=== PATIENT | female | born 1940 | race African-American/Black ===

== ENCOUNTER 2021-11-11 14:05 | Inpatient (IN) | payer MEDICARE ==
[~2021-11-11] VITALS: Ht 167.6 cm; Wt 65.8 kg
[2021-11-11 14:05] VITALS: BP_SYST 114
--- NOTE | 2021-11-11 14:05 | NUR ---
BROUGHT IN TO BED #4 AND TRIAGED. REPORT GIVEN TO MIGUEL
--- NOTE | 2021-11-11 14:19 | NUR ---
DR FRANK AT CALLED TO BEDSIDE FOR EVALUATION
--- NOTE | 2021-11-11 14:37 | NUR ---
COVID Swab sent to lab for testing at 14:38.
--- NOTE | 2021-11-11 15:01 | NUR ---
81YO F BIBA FROM HOME WITH C/O ALTERED MENTAL STATUS X 2 HOURS. PT WITH RIGHT-SIDED DEFICIT S/P STROKE IN 2013. PT USUALLY RESPONDS TO QUESTIONS AND WAKES UP TO EAT, DRINK AND TAKE MEDICATIONS. BUT ACCORDING TO FAMILY, PT WOULD OPEN EYES BUT NOT RESPOND THIS MORNING. PT BED-BOUND AT BASELINE. ERMD MADE AWARE OF PT STATUS. PMH: BRAIN SURGERY (2005), STROKE (2013), ALZHEIMERS/DEMENTIA
[2021-11-11] MEDS ORDERED: VANCOMYCIN HCL 1000 MG/VIAL IV ONE (15:55)
[2021-11-11] MEDS ORDERED: PIPERACILLIN/TAZOBACTAM 3.375 GM/VIAL (ZOSYN) IV ONE (15:55)
[2021-11-11] MEDS ORDERED: PIPERACILLIN/TAZO 3.375 GM in NS 50 ML IV ONE (16:00)
[2021-11-11] MEDS ORDERED: NACL 0.9% 1,000 ML IV ONE (16:00)
[2021-11-11] MEDS ORDERED: VANCOMYCIN HCL 1,000 MG in NS 250 ML IV ONE (16:00)
[2021-11-11 16:03] LABS: ANION GAP 7 (5-15); CHLORIDE 105 mmol/L (98-107); CREATININE 0.85 mg/dL (0.55-1.30); GLUCOSE 127 mg/dL (70-99); INR 4.7 (0.8-1.2); POTASSIUM 3.2 mmol/L (3.5-5.1); PROTHROMBIN TIME 43.7 SECS (9.5-12.5); SODIUM SERUM 139 mmol/L (136-145); UREA NITROGEN, BLOOD 19 mg/dL (8-21)
[2021-11-11 16:07] LABS: ALANINE AMINOTRANSFERASE 44 U/L (12-78); ALBUMIN 3.2 g/dL (3.4-4.8); ALCOHOL, BLOOD 3 mg/dL (<10); ASPARTATE AMINOTRANSFERASE 41 U/L (10-37); LIPASE 118 U/L (73-393); PHOSPHORUS 1.9 mg/dL (2.7-4.5); TOTAL BILIRUBIN 1.8 mg/dL (0.0-1.0)
[2021-11-11 16:22] LABS: CALCIUM 13.1 mg/dL (8.4-11.0)
[2021-11-11] MEDS ORDERED: AMLO2.5T2 PO (16:23)
[2021-11-11] MEDS ORDERED: GABA-529 PO (16:23)
[2021-11-11] MEDS ORDERED: LOSA100T3 PO (16:23)
[2021-11-11] MEDS ORDERED: VITD400 PO (16:23)
[2021-11-11] MEDS ORDERED: MORPHINE 2 MG/ML INJ. SYRINGE IVP ONE (16:30)
[2021-11-11 16:37] LABS: BASOPHILS % (AUTO) 0.5 % (0.0-2.0); EOSINOPHILS % (AUTO) 0.1 % (0.0-4.0); HEMATOCRIT 36.4 % (36-48); HEMOGLOBIN 12.4 g/dL (12.0-16.0); LYMPHOCYTES # (AUTO) 1.3 K/uL (1.0-5.5); LYMPHOCYTES % (AUTO) 14.7 % (20.5-51.5); MEAN CORPUSCULAR HEMOGLOBIN 34 pg (27-31); MEAN CORPUSCULAR HGB CONC 34 % (32-36); MEAN CORPUSCULAR VOLUME 100 fL (79.0-98.0); MONOCYTES # (AUTO) 0.8 K/uL (0.0-1.0); MONOCYTES % (AUTO) 9.2 % (1.7-9.3); NEUTROPHILS # (AUTO) 6.5 K/uL (1.8-7.7); NEUTROPHILS % (AUTO) 75.5 % (40.0-70.0); PLATELET COUNT (AUTO) 233 K/uL (130-430); RED BLOOD CELL COUNT(AUTO) 3.65 MIL/uL (4.2-6.2); RED CELL DISTRIBUTION WIDTH 13.3 % (9.0-15.0); WHITE BLOOD COUNT (AUTO) 8.6 K/uL (4.8-10.8)
--- NOTE | 2021-11-11 18:05 | NUR ---
Admit bed requested Patient will be admitted to care of . Admitted to TELEMETRY unit. Diagnosis ALTERED MENTAL STATUS Inpatient (Yes or No) YES Observation (Yes or No) NO Orientation concerns or request close to nursing station (Yes or No) NO Covid Status NEGATIVE On vent or bipap NO Isolation requirements NONE Needs a sitter NO From Home (Yes or if No enter name of facility) YES Requires Dialysis (Yes or No) NO Med Rec Completed (Yes of No) NO
--- NOTE | 2021-11-11 18:06 | NUR ---
MED LIST WITH DAUGHTER. DAUGHTER WAS IN WAITING ROOM BUT STEPPED OUT AT THIS TIME.
--- NOTE | 2021-11-11 18:35 | NUR ---
ADMITTED PATIENT BROUGHT TO FLOOR VIA [facility]. PATIENT IS ON 15L NON REBREATHER, OPENED EYES WHEN TRANSFERRING FROM [facility] TO BED. PATIENT'S BREATHING IS LABORED. PATIENT HAS SIGNED DNR IN CHART. IV FLUID IS INFUSING. NO OTHER NEEDS AT THIS TIME. ALL SAFETY PRECAUTIONS IN PLACE. CALL LIGHT IS WITH HER ATTEMPTED TO EDUCATE BUT UNABLE TO EDUCATED. NO OTHER NEEDS AT THIS TIME.
--- NOTE | 2021-11-11 18:41 | NUR ---
Patient will be admitted to care of dr molina. Admitted to telemetry unit. Will go to room 119b. Belongings list completed. Complete and up to date summary report printed. SBAR report to be given at bedside with opportunity for questions.
[2021-11-11 18:49] VITALS: BP_SYST 123
--- NOTE | 2021-11-11 21:15 | NUR ---
ADMISSION from ER patient non verbal , on non Re breather 02 MASK @ 15 LPM patient is DNR with document in medical RECORD , HOB kept elevated call ballard given to patient procedures explained comfort measures implemented .
[2021-11-11 23:00] VITALS: BP_SYST 114
[2021-11-12 00:18] VITALS: BP_SYST 125
--- NOTE | 2021-11-12 02:12 | NUR ---
Reposition & Turning patient on two hour schedule comfort measures implemented kept clean & dry as needed .
[2021-11-12 08:00] VITALS: BP_SYST 132
--- NOTE | 2021-11-12 08:00 | NUR ---
INITIAL NOTES PATIENT IS RESTING WITH EYES CLOSED. OPENED EYES WHEN REPOSITIONED HER. NONVERBAL. PATIENT IS ON 15 L NON REBREATHER. SPO2 100%. BREATHING IS NON LABORED. RESPIRATORY RATE 16. NO FACIAL GRIMACE OR DISTRESS NOTED. SAFETY PRECAUTIONS IN PLACE. CALL LIGHT WITHIN REACH.
--- NOTE | 2021-11-12 10:00 | NUR ---
Notes Has incontinent of urine, change and repositioned. patient able to open her eyes but she is non verbal. Oral care and javier care done.
--- NOTE | 2021-11-12 11:11 | NUR ---
CONSULTATION PAGED REASON FOR CONSULTATION:STROKE WAS CONSULT CALLED?Y PERSON WHO WAS NOTIFIED:TEXT MESSAGED KLEVER WAGGONER CONSULTING PHYSICIAN:KLEVER WAGGONER MEDICAL RECORD ADMINISTRATOR SPECIALTY:NEURO MEDICAL RECORD ADMINISTRATOR PHONE NUMBER:[phone] REQUESTING PHYSICIAN:JJ KIMBROUGH
[2021-11-12 11:28] VITALS: BP_SYST 133
--- NOTE | 2021-11-12 12:30 | NUR ---
Notes Patient is resting with eyes closed. No facial grimace note. No s/s of distress. Pt has been turned and repositioned. Safety Precautions in place and call light within reach.
--- NOTE | 2021-11-12 13:10 | NUR ---
NOTES CARDIOPULMONARY CALLED, EEG CANNOT BE DONE TODAY. SCHEDULED FOR TOMORROW 11/13 AT 0800.
[2021-11-12] MEDS: KCL 20 mEq in D5NS 1000 mL 1,000 ML IV SCH ×2 (14:14→23:49)
[2021-11-12 15:51] VITALS: BP_SYST 117
--- NOTE | 2021-11-12 16:30 | NUR ---
Notes Patient continues to be resting. Has been cleaned and repositioned. No s/s of distress or facial grimace noted. Family is at bedside. Safety precautions in place. Unable to remove extremities, bed alarm on.
--- NOTE | 2021-11-12 18:09 | NUR ---
INFORMED ARA OSBORN THAT THE PATIENT'S HEARTRATE IS 181
--- NOTE | 2021-11-12 18:22 | NUR ---
Closing Notes Patient is resting, eyes closed. Patient's heart rate went up t0 181, for a short period of time and went back down to 102. Pt is DNR. Family wants comfort measures. Will notify MD.
[2021-11-12 20:00] VITALS: BP_SYST 114
[2021-11-13] VITALS: BP_SYST 95
[2021-11-13 00:15] VITALS: BP_SYST 141
[2021-11-13 06:54] LABS: BASOPHILS % (AUTO) 0.2 % (0.0-2.0); HEMATOCRIT 37.9 % (36-48); LYMPHOCYTES % (AUTO) 5.5 % (20.5-51.5); MEAN CORPUSCULAR HEMOGLOBIN 34 pg (27-31); MEAN CORPUSCULAR HGB CONC 34 % (32-36); MEAN CORPUSCULAR VOLUME 100 fL (79.0-98.0); MONOCYTES # (AUTO) 0.9 K/uL (0.0-1.0); MONOCYTES % (AUTO) 5.2 % (1.7-9.3); NEUTROPHILS # (AUTO) 15.6 K/uL (1.8-7.7); NEUTROPHILS % (AUTO) 89.1 % (40.0-70.0); PLATELET COUNT (AUTO) 210 K/uL (130-430); RED BLOOD CELL COUNT(AUTO) 3.81 MIL/uL (4.2-6.2); RED CELL DISTRIBUTION WIDTH 12.9 % (9.0-15.0); WHITE BLOOD COUNT (AUTO) 17.5 K/uL (4.8-10.8)
[2021-11-13 07:27] LABS: ANION GAP 11 (5-15); CALCIUM 12.3 mg/dL (8.4-11.0); CHLORIDE 111 mmol/L (98-107); CREATININE 0.63 mg/dL (0.55-1.30); GLUCOSE 140 mg/dL (70-99); POTASSIUM 3.3 mmol/L (3.5-5.1); SODIUM SERUM 148 mmol/L (136-145); UREA NITROGEN, BLOOD 11 mg/dL (8-21)
[2021-11-13 08:00] VITALS: BP_SYST 128
--- NOTE | 2021-11-13 08:00 | NUR ---
Initial Notes Patient is resting, eyes closed. Non verbal, unable to move extremities. Pt on nonrebreather mask @ 15 L. SPo2 at 100%. VS obtained. no s/s of distress or facial grimace. Pt has been repositioned. Bed alarm on, safety precautions in place. Addendum: 11/13/21 at 1041 by Aaliyah Pablo LVN Initial Notes Patient is resting, eyes closed. Lethargic, Non verbal, unable to move extremities. Pt on nonrebreather mask @ 15 L. SPo2 at 100%. VS obtained. no s/s of distress or facial grimace. Pt has been repositioned. Bed alarm on, safety precautions in place.
--- NOTE | 2021-11-13 08:30 | NUR ---
MD ROUNDS Seen by Dr. Jerome, made aware of patient's no IV access at this time and patient is hardstick. No new orders at this time.
[2021-11-13] MEDS: ATORVASTATIN 20 MG TABLET PO SCH (09:00)
[2021-11-13] MEDS: ASPIRIN 81 MG TABLET(ECOTRIN) PO SCH (09:00)
--- NOTE | 2021-11-13 10:00 | NUR ---
IV - Able to start IV access on the right Forearm no. 24.
[2021-11-13] MEDS: PIPERACILLIN/TAZO 3.375/DEX-IS 50 ML IV SCH ×2 (11:33→18:05)
[2021-11-13] MEDS: KCL 40mEq in D5/0.45NS 1000 mL 1,000 ML IV SCH ×2 (11:33→19:45)
--- NOTE | 2021-11-13 12:00 | NUR ---
Notes Patient is lethargic, non verbal. No change from earlier assessment. No s/s of distress or pain noted. No facial grimace. pt has been repositioned. Safety precautions in place and bed alarm on.
[2021-11-13 12:08] VITALS: BP_SYST 129
[2021-11-13 16:18] VITALS: BP_SYST 124
--- NOTE | 2021-11-13 18:20 | NUR ---
CLOSING NOTES PATIENT IS RESTING, EYES CLOSED. NO S/S OF DISTRESS OR PAIN NOTED. PT SPO2 AT 100% WITH NRB @ 15L. FAMILY AT BEDSIDE. WAITING FOR BED AT [facility]. SAFETY PRECAUTIONS IN PLACE. BED ALARM ON. Addendum: 11/13/21 at 1831 by Aaliyah Pablo LVN CLOSING NOTES PATIENT IS RESTING, EYES CLOSED. NO S/S OF DISTRESS OR PAIN NOTED. PT SPO2 AT 100% WITH NRB @ 15L. FAMILY AT BEDSIDE. WAITING FOR BED AT [facility]. SAFETY PRECAUTIONS IN PLACE. BED ALARM ON.
[2021-11-13 21:36] VITALS: BP_SYST 125
[2021-11-14 00:52] VITALS: BP_SYST 113
[2021-11-14] MEDS: PIPERACILLIN/TAZO 3.375/DEX-IS 50 ML IV SCH ×5 (01:13→18:15)
[2021-11-14] MEDS: KCL 40mEq in D5/0.45NS 1000 mL 1,000 ML IV SCH ×2 (04:20→15:45)
--- NOTE | 2021-11-14 08:00 | NUR ---
OPENING NOTE Patient is resting, eyes closed but will open eye when name is called. Lethargic, Non verbal, unable to move extremities. Pt on nonrebreather mask @ 12 L. SPo2 at 100%. VS obtained all WNL with no s/s of distress or facial grimace. Pt has IV access in L arm with IVF infusing. Bed alarm on and all safety precautions in place.
--- NOTE | 2021-11-14 08:00 | NUR ---
Critical Lab Harriet from lab tho and pt's Potassium level was 2.7. MD Jerome notified and order to give K rider 40 Meq. Lab called and notified
[2021-11-14 08:27] LABS: CALCIUM 12.2 mg/dL (8.4-11.0); CREATININE 0.76 mg/dL (0.55-1.30); GLUCOSE 144 mg/dL (70-99); UREA NITROGEN, BLOOD 9 mg/dL (8-21)
[2021-11-14 08:34] LABS: ANION GAP 11 (5-15); CHLORIDE 108 mmol/L (98-107); SODIUM SERUM 145 mmol/L (136-145)
[2021-11-14 08:39] LABS: POTASSIUM 2.7 mmol/L (3.5-5.1)
[2021-11-14] MEDS: ATORVASTATIN 20 MG TABLET PO SCH (09:00)
[2021-11-14] MEDS: ASPIRIN 81 MG TABLET(ECOTRIN) PO SCH (09:00)
[2021-11-14 09:18] LABS: BASOPHILS % (AUTO) 0.3 % (0.0-2.0); EOSINOPHILS % (AUTO) 0.2 % (0.0-4.0); HEMATOCRIT 37.8 % (36-48); HEMOGLOBIN 12.8 g/dL (12.0-16.0); LYMPHOCYTES # (AUTO) 1.3 K/uL (1.0-5.5); LYMPHOCYTES % (AUTO) 12.6 % (20.5-51.5); MEAN CORPUSCULAR HEMOGLOBIN 34 pg (27-31); MEAN CORPUSCULAR HGB CONC 34 % (32-36); MEAN CORPUSCULAR VOLUME 99 fL (79.0-98.0); MONOCYTES # (AUTO) 1.1 K/uL (0.0-1.0); MONOCYTES % (AUTO) 10.6 % (1.7-9.3); NEUTROPHILS # (AUTO) 7.8 K/uL (1.8-7.7); NEUTROPHILS % (AUTO) 76.3 % (40.0-70.0); PLATELET COUNT (AUTO) 265 K/uL (130-430); RED BLOOD CELL COUNT(AUTO) 3.82 MIL/uL (4.2-6.2); RED CELL DISTRIBUTION WIDTH 13.1 % (9.0-15.0); WHITE BLOOD COUNT (AUTO) 10.2 K/uL (4.8-10.8)
[2021-11-14 10:45] VITALS: BP_SYST 124
--- NOTE | 2021-11-14 10:45 | NUR ---
CM: CALLED SPOKE TO [facility]EELE, , wILL BE WORKING ON FINDING A BED FOR THE PT, UNCLEAR ABOUT LOCATION AT THIS TIME, [facility] vs [facility], FAMILY PREFERS [facility], WILL HAVE DAUGHTER CHETAN CALL [employer] TO VERIFY ADDRESS.
[2021-11-14] MEDS ORDERED: MUPIROCIN 2% TOPICAL OINTMENT 22 GM NS PRN (11:15)
[2021-11-14] MEDS ORDERED: POTASSIUM CHLORIDE 20 MEQ TAB.PRT.SR PO PRN (11:15)
[2021-11-14] MEDS ORDERED: ACETAMINOPHEN 325 MG TABLET PO PRN ×2 (11:15→11:30)
[2021-11-14] MEDS ORDERED: MORPHINE 2 MG/ML INJ. SYRINGE IVP PRN ×2 (11:15)
[2021-11-14] MEDS ORDERED: ONDANSETRON HCL 4 MG/2 ML VIAL IVP PRN (11:15)
[2021-11-14] MEDS ORDERED: DOCUSATE SODIUM 100 MG CAPSULE PO PRN (11:15)
[2021-11-14] MEDS ORDERED: MAGNESIUM SULFATE 50 ML IV PRN (11:15)
--- NOTE | 2021-11-14 11:30 | NUR ---
TRANSFER NOTE [facility] TRANSFER STAFF CEDRIC CALLED FROM [phone]. SHE REPORTED PT WAS TO TRANSFER TO [facility]. THIS NURSE CALLED RICH CALLED AT [phone] TO INFORM OF THE TRANSFER. MR LU WAS UPSET AND REPORTS PT WAS TO TRANSFER TO [facility]. THIS NURSE GAVE MR GODWIN THE NUMBER TO SPEAK WITH MS CEDRIC AT [facility]
[2021-11-14 12:18] LABS: INR > 9.0 (0.8-1.2)
[2021-11-14 12:19] LABS: PROTHROMBIN TIME > 90.0 SECS (9.5-12.5)
[2021-11-14] MEDS ORDERED: POTASSIUM CHLORIDE 40 MEQ in NS 250 ML IV ONE (12:30)
[2021-11-14 12:42] VITALS: BP_SYST 120
[2021-11-14 16:11] VITALS: BP_SYST 145
--- NOTE | 2021-11-14 19:46 | NUR ---
CRITICAL LAB PT GREATER THAN 90 SEC INR GREATER THAN 9 PAGE [address]ACED SUE FOLEY, AWAITING ORDERS
--- NOTE | 2021-11-14 19:47 | NUR ---
Left a message to Dr. Lewis.
[2021-11-14 20:01] VITALS: BP_SYST 131
--- NOTE | 2021-11-14 20:07 | NUR ---
MD RETURN CALL DR GARDNER NOTIFIED OF INCREASE PT AND INR, AT THIS TIME SHE GAVE NO NEW ORDERS
[2021-11-15 00:41] VITALS: BP_SYST 130
[2021-11-15 02:52] VITALS: BP_SYST 130
--- NOTE | 2021-11-15 03:56 | NUR ---
PT HEART RATE GOES UP TO 160-170'S I CALLED DR. HEREDIA WELDING PROCESS SPECIALIST TO NOTIFY HER AND SHE STATED TO PLACE AN ORDER FOR METOPROLOL 5 MG IVP ONCE NOW. ORDER HAS BEEN PLACED AND PENDING APPROVAL FROM PHARMACY . WILL CONTINUE TO MONITOR PT.
[2021-11-15] MEDS ORDERED: METOPROLOL TARTRATE 5 MG/5 ML AMPUL IVP ONE (04:00)
[2021-11-15] MEDS: KCL 40mEq in D5/0.45NS 1000 mL 1,000 ML IV SCH ×2 (04:05→14:03)
[2021-11-15] MEDS: PIPERACILLIN/TAZO 3.375/DEX-IS 50 ML IV SCH ×3 (05:14→16:50)
--- NOTE | 2021-11-15 07:45 | NUR ---
Opening Notes/AFIB RVR Patient is awake, alert and oriented x0. Flat affect, withdrawn. Arousable to painful stimuli. Patient is currently in AFIB RVR, HR 140-170's. Nurse contacted Dr. Jerome and obtained new orders for Cardizem 10 mg IVP. Administered Cardizem 10 mg IVP, tolerated well. HR controlled to 105-110. New cardiac consult with Dr. Delgado. Mild SOB at rest. Pt remains on NRB @ 15 LPM, use of accessory muscles. NO signs of pain on FLACC scale. IV site on right FA 20 gauge intact. KCl 40 mEq + D5 1/2 NS @ 100 ml/hr, infusing well. Pt was repositioned in bed with pillows. All needs met at this time. Safety and fall precautions in place. Bed in lowest position, alarm on, locked. Will continue to monitor.
[2021-11-15 07:50] LABS: BASOPHILS % (AUTO) 0.4 % (0.0-2.0); EOSINOPHILS # (AUTO) 0.1 K/uL (0.0-0.4); EOSINOPHILS % (AUTO) 0.8 % (0.0-4.0); HEMOGLOBIN 10.9 g/dL (12.0-16.0); LYMPHOCYTES # (AUTO) 1.6 K/uL (1.0-5.5); LYMPHOCYTES % (AUTO) 17.5 % (20.5-51.5); MEAN CORPUSCULAR HEMOGLOBIN 34 pg (27-31); MEAN CORPUSCULAR HGB CONC 34 % (32-36); MEAN CORPUSCULAR VOLUME 100 fL (79.0-98.0); MONOCYTES # (AUTO) 1.1 K/uL (0.0-1.0); MONOCYTES % (AUTO) 11.4 % (1.7-9.3); NEUTROPHILS # (AUTO) 6.4 K/uL (1.8-7.7); NEUTROPHILS % (AUTO) 69.9 % (40.0-70.0); PLATELET COUNT (AUTO) 249 K/uL (130-430); RED BLOOD CELL COUNT(AUTO) 3.21 MIL/uL (4.2-6.2); RED CELL DISTRIBUTION WIDTH 13.2 % (9.0-15.0); WHITE BLOOD COUNT (AUTO) 9.2 K/uL (4.8-10.8)
[2021-11-15] MEDS: dilTIAZem HCL IVP 5 MG/ML VIAL IVP PRN ×2 (07:51→14:03)
[2021-11-15 08:00] VITALS: BP_SYST 160
[2021-11-15 08:45] LABS: ANION GAP 7 (5-15); CALCIUM 11.4 mg/dL (8.4-11.0); CHLORIDE 110 mmol/L (98-107); CREATININE 0.86 mg/dL (0.55-1.30); GLUCOSE 122 mg/dL (70-99); POTASSIUM 3.8 mmol/L (3.5-5.1); SODIUM SERUM 144 mmol/L (136-145); UREA NITROGEN, BLOOD 8 mg/dL (8-21)
[2021-11-15] MEDS: ASPIRIN 81 MG TABLET(ECOTRIN) PO SCH (09:00)
[2021-11-15] MEDS: ATORVASTATIN 20 MG TABLET PO SCH (09:00)
--- NOTE | 2021-11-15 09:20 | NUR ---
AFIB RVR-HR [address] Delgado of patients AFIB RVR, HR 150-170's. MD Delgado aware. New orders obtained for Lopressor.
[2021-11-15] MEDS: METOPROLOL TARTRATE 5 MG/5 ML AMPUL IVP PRN (09:53)
--- NOTE | 2021-11-15 12:00 | NUR ---
Notes/Continued AFIB RVR, Dr. Delgado aware Patient is sleeping while in bed. Alert and oriented x0. Cardiac monitoring, AFIB RVR. HR is 150-170. Notified Dr. Delgado, no new orders at this time. No acute distress noted. Pt shows no signs of pain. No stroke like symptoms at this time. Difficult to arouse. Repositioned patient in bed with pillows. Will continue to monitor.
[2021-11-15 12:29] VITALS: BP_SYST 152
--- NOTE | 2021-11-15 14:00 | NUR ---
Cardizem 10 mg IVP Pt is laying in bed, resting at this time. Mild SOB at rest. Pt remains on NRB @ 15 LPM, tolerating well. Oxy noted at 100%. No signs of pain. Cardiac monitoring, AFIB RVR, HR 150-180. Administered Cardizem 10 mg IVP, tolerated well. Upon reassessment, patients HR was noted at 60-90 BPM within the hour. Will continue to monitor.
[2021-11-15 16:06] VITALS: BP_SYST 136
--- NOTE | 2021-11-15 18:26 | NUR ---
Closing Notes/Continued AFIB RVR, HR 140-150 Patient is asleep at this time. Alert and oriented x0, restful. Moderate SOB at rest. Pt remains on Venturi Mask @ 8 LPM, tolerating well. Oxy sat noted at 100%. No signs of pain at this time. IV site on right FA 20 gauge intact, KCl 40 mEq + D5 1/2 NS @ 100 ml/hr, infusing well. Pending PICC line insertion and TPN start, will endorse to next shift. Pt remains on bedrest at this time. Repositioned with pillows. All needs met at this time. Safety and fall precautions in place. Bed in lowest position, alarm on, locked. Will continue to monitor.
[2021-11-15 20:11] VITALS: BP_SYST 125
--- NOTE | 2021-11-15 21:26 | NUR ---
RR REGULAR AND UNLABORED, OBTUNDED, DOES NOT OPEN EYES UPON TACTILE STIMULATION. ITEMS NEEDED TO START THE PICC LINE AT BEDSIDE, AWAITING PICC LINE NURSE Addendum: 11/15/21 at 215 by [facility] control inspector PICC LINE NURSE AT BEDSIDE Addendum: 11/15/21 at 2251 by [facility] Marielle VILLANUEVA 2229: PICC LINE INSERTED, DIYA FROM XRAY CALLED TO VERIFY PLACEMENT. Addendum: 11/15/21 at 2256 by [place] control inspector [id number]: [facility] LINE IN PLACE.
[2021-11-16] VITALS: BP_SYST 142
[2021-11-16] MEDS: PIPERACILLIN/TAZO 3.375/DEX-IS 50 ML IV SCH ×4 (00:17→18:58)
[2021-11-16] MEDS: KCL 40mEq in D5/0.45NS 1000 mL 1,000 ML IV SCH ×3 (05:27→16:16)
[2021-11-16 08:35] LABS: BASOPHILS # (AUTO) 0.1 K/uL (0.0-0.2); BASOPHILS % (AUTO) 0.7 % (0.0-2.0); EOSINOPHILS # (AUTO) 0.1 K/uL (0.0-0.4); EOSINOPHILS % (AUTO) 1.3 % (0.0-4.0); HEMATOCRIT 32.2 % (36-48); HEMOGLOBIN 11.1 g/dL (12.0-16.0); LYMPHOCYTES # (AUTO) 1.8 K/uL (1.0-5.5); LYMPHOCYTES % (AUTO) 19.4 % (20.5-51.5); MEAN CORPUSCULAR HEMOGLOBIN 34 pg (27-31); MEAN CORPUSCULAR HGB CONC 34 % (32-36); MEAN CORPUSCULAR VOLUME 99 fL (79.0-98.0); MONOCYTES # (AUTO) 0.8 K/uL (0.0-1.0); MONOCYTES % (AUTO) 8.5 % (1.7-9.3); NEUTROPHILS # (AUTO) 6.5 K/uL (1.8-7.7); NEUTROPHILS % (AUTO) 70.1 % (40.0-70.0); PLATELET COUNT (AUTO) 221 K/uL (130-430); RED BLOOD CELL COUNT(AUTO) 3.25 MIL/uL (4.2-6.2); RED CELL DISTRIBUTION WIDTH 13.2 % (9.0-15.0); WHITE BLOOD COUNT (AUTO) 9.2 K/uL (4.8-10.8)
[2021-11-16 08:59] LABS: ANION GAP 9 (5-15); CALCIUM 10.7 mg/dL (8.4-11.0); CHLORIDE 106 mmol/L (98-107); CREATININE 0.83 mg/dL (0.55-1.30); GLUCOSE 117 mg/dL (70-99); POTASSIUM 3.6 mmol/L (3.5-5.1); SODIUM SERUM 140 mmol/L (136-145); UREA NITROGEN, BLOOD 9 mg/dL (8-21)
[2021-11-16] MEDS: ATORVASTATIN 20 MG TABLET PO SCH (09:00)
[2021-11-16] MEDS: ASPIRIN 81 MG TABLET(ECOTRIN) PO SCH (09:00)
--- NOTE | 2021-11-16 12:14 | NUR ---
PHARMACY MANAGER received SS consult to arrange for Hospice care. PHARMACY MANAGER attempted to meet with Pt. however at this time she was not responsive and unable to participate in a meaningful manner. Per chart review family has declined hospice when addressed by [facility] 2 different MD recommending hospice care. Pt. is DNR and prognosis is poor. PHARMACY MANAGER attempted to speak with , unable to make contact. PHARMACY MANAGER faxed referral to [facility] so that they may consult with family and introduce services for consideration of hospice care. Voicemail was left for [facility] hospice care provider Pina regarding family declining recommendation and might need some intro to services and sensitively address theri concerns.
[2021-11-16 12:22] VITALS: BP_SYST 138
--- NOTE | 2021-11-16 15:35 | NUR ---
NURSE RECEIVED A PHONE CALL FROM HOSPICE NURSE, LIYA. NURSE IS CALLING FROM [facility]. NURSE REACHED OUT OT HE FAMILY TO START PROCESSING THE PT. FAMILY REFUSED HOME HOSPICE.STATED THAT THEY WANTED THE PT TO RECEIVE INPATIENT HOSPICE AT THE HOSPITAL.
[2021-11-16 16:26] VITALS: BP_SYST 140
[2021-11-16 20:00] VITALS: BP_SYST 118; BP_SYST 136
[2021-11-17] MEDS: PIPERACILLIN/TAZO 3.375/DEX-IS 50 ML IV SCH ×4 (00:18→18:28)
[2021-11-17 00:48] VITALS: BP_SYST 139
[2021-11-17] MEDS: KCL 40mEq in D5/0.45NS 1000 mL 1,000 ML IV SCH ×3 (04:00→13:22)
[2021-11-17 07:00] LABS: BASOPHILS % (AUTO) 0.4 % (0.0-2.0); EOSINOPHILS # (AUTO) 0.1 K/uL (0.0-0.4); EOSINOPHILS % (AUTO) 1.9 % (0.0-4.0); HEMATOCRIT 34.8 % (36-48); HEMOGLOBIN 11.7 g/dL (12.0-16.0); LYMPHOCYTES # (AUTO) 1.9 K/uL (1.0-5.5); LYMPHOCYTES % (AUTO) 23.5 % (20.5-51.5); MEAN CORPUSCULAR HEMOGLOBIN 33 pg (27-31); MEAN CORPUSCULAR HGB CONC 34 % (32-36); MEAN CORPUSCULAR VOLUME 99 fL (79.0-98.0); MONOCYTES # (AUTO) 0.7 K/uL (0.0-1.0); MONOCYTES % (AUTO) 8.8 % (1.7-9.3); NEUTROPHILS # (AUTO) 5.2 K/uL (1.8-7.7); NEUTROPHILS % (AUTO) 65.4 % (40.0-70.0); PLATELET COUNT (AUTO) 241 K/uL (130-430); RED BLOOD CELL COUNT(AUTO) 3.51 MIL/uL (4.2-6.2); WHITE BLOOD COUNT (AUTO) 7.9 K/uL (4.8-10.8)
[2021-11-17 07:26] LABS: ANION GAP 7 (5-15); CALCIUM 10.3 mg/dL (8.4-11.0); CHLORIDE 106 mmol/L (98-107); CREATININE 0.85 mg/dL (0.55-1.30); GLUCOSE 128 mg/dL (70-99); POTASSIUM 3.9 mmol/L (3.5-5.1); SODIUM SERUM 137 mmol/L (136-145); UREA NITROGEN, BLOOD 6 mg/dL (8-21)
[2021-11-17 08:00] VITALS: BP_SYST 145
[2021-11-17] MEDS: ASPIRIN 81 MG TABLET(ECOTRIN) PO SCH (08:47)
[2021-11-17] MEDS: ATORVASTATIN 20 MG TABLET PO SCH (08:48)
[2021-11-17 12:52] VITALS: BP_SYST 148
[2021-11-17] MEDS: dilTIAZem HCL IVP 5 MG/ML VIAL IVP PRN (14:53)
[2021-11-17 16:15] VITALS: BP_SYST 147
--- NOTE | 2021-11-17 22:00 | NUR ---
RECEIVED IN NO ACUTE RESP. DISTRESS. ON RA AND O2 SATS 100%. VS WNL. REPOSITIONED IN BED FOR COMFORT. NO S/S OF PAIN OR DISCOMFORT AT THIS TIME. SAFETY MEASURES IN PLACE. WILL CONTINUE WITH PLAN OF CARE.
[2021-11-17 22:16] VITALS: BP_SYST 147
[2021-11-18] VITALS (7 sets, daily range): BP systolic 110–152
[2021-11-18] MEDS: PIPERACILLIN/TAZO 3.375/DEX-IS 50 ML IV SCH ×4 (00:10→18:22)
[2021-11-18] MEDS: KCL 40mEq in D5/0.45NS 1000 mL 1,000 ML IV SCH ×2 (00:10→15:07)
--- NOTE | 2021-11-18 03:25 | NUR ---
BED BATH GIVEN AND PT TOLERATED WELL. IN NO ACUTE DISTRESS. REPOSITIONED FOR COMFORT. HOB ELEVATED AND SIDE RAILS UP.
--- NOTE | 2021-11-18 06:26 | NUR ---
PT REMAINS IN NO ACUTE DISTRESS, ON RA SATS 98%. NO CHANGES IN VS. NO S/S OF PAIN OR DISCOMFORT NOTED. REPOSITIONED IN BED FOR COMFORT. HOB ELEVATED AND SIDE RAILS UP. IVF INFUSING WELL . WILL BE ENDORSED TO INCOMING SHIFT.
[2021-11-18 07:38] LABS: ALANINE AMINOTRANSFERASE 43 U/L (12-78); ALBUMIN 2.1 g/dL (3.4-4.8); ANION GAP 7 (5-15); ASPARTATE AMINOTRANSFERASE 41 U/L (10-37); CALCIUM 10.4 mg/dL (8.4-11.0); CHLORIDE 106 mmol/L (98-107); CREATININE 0.87 mg/dL (0.55-1.30); GLUCOSE 110 mg/dL (70-99); POTASSIUM 3.6 mmol/L (3.5-5.1); SODIUM SERUM 138 mmol/L (136-145); TOTAL BILIRUBIN 1.5 mg/dL (0.0-1.0); UREA NITROGEN, BLOOD 5 mg/dL (8-21)
[2021-11-18 07:57] LABS: INR 8.5 (0.8-1.2); PROTHROMBIN TIME 75.7 SECS (9.5-12.5)
[2021-11-18] MEDS: ATORVASTATIN 20 MG TABLET PO SCH (09:00)
[2021-11-18] MEDS: ASPIRIN 81 MG TABLET(ECOTRIN) PO SCH (09:00)
--- NOTE | 2021-11-18 10:05 | NUR ---
Tube Machine Operator Helper ANA Wells spoke with Pina from [facility]. She shared they connected with family on 11/16/2021 to discuss services, and shared patient's daughter Sona had additional questions. ANA Wells contacted patient's daughter Sona . She stated both her and patient's are not wanting to move forward with hospice care and would like patient to be transferred to [facility]. ANA has provided update of family's wishes to Patron Attendant Charo ANA will continue to be available as needed
--- NOTE | 2021-11-18 12:27 | NUR ---
Request for transfer to [facility] sent to [facility] at [facility]- at [facility] is [phone].
[2021-11-18] MEDS: dilTIAZem HCL IVP 5 MG/ML VIAL IVP PRN (16:07)
--- NOTE | 2021-11-18 16:10 | NUR ---
HR 142 HR 142. CARDIZEM 10 MG IVP GIVEN ORDER AFTER CARDIZEM HR 102-102. PT RESTING COMFORTABLY. NO S/S OF PAIN OR DISTRESS NOTED. WILL CONTINUE TO MONITOR
--- NOTE | 2021-11-18 16:37 | NUR ---
Transfer packet taken to RN with radiology disc-Barker to call if bed is available for patient.
--- NOTE | 2021-11-18 19:33 | NUR ---
closing notes .pt remains stable. notin acute distress. ivf infusing well. needs attended. repositioned with pillow. report given to night nurse
--- NOTE | 2021-11-18 23:53 | NUR ---
1930 Pt. in bed, non responsive, eyes open. NO acute distress noted, will monitor.
[2021-11-19] MEDS: PIPERACILLIN/TAZO 3.375/DEX-IS 50 ML IV SCH ×4 (00:01→17:04)
[2021-11-19 00:45] VITALS: BP_SYST 158
--- NOTE | 2021-11-19 02:37 | NUR ---
21 Pt. sleeping, vss 0030 Pt. with no distress, hob at35 degrees, turned and kept dry and clean
[2021-11-19] MEDS: KCL 40mEq in D5/0.45NS 1000 mL 1,000 ML IV SCH ×2 (02:41→13:17)
[2021-11-19] MEDS: METOPROLOL TARTRATE 5 MG/5 ML AMPUL IVP PRN (04:32)
--- NOTE | 2021-11-19 06:32 | NUR ---
0600 Pt. needs met this shift, vss, no s/s of pain. Turned and kept clean and dry during shift, resting quietly,
[2021-11-19] MEDS: ATORVASTATIN 20 MG TABLET PO SCH (08:39)
[2021-11-19] MEDS: ASPIRIN 81 MG TABLET(ECOTRIN) PO SCH (08:39)
[2021-11-19 09:08] VITALS: BP_SYST 145
--- NOTE | 2021-11-19 09:56 | NUR ---
Transfer order and MD notes faxed to [facility].
--- NOTE | 2021-11-19 11:06 | NUR ---
RECEIVED CALL FROM URIEL VARGAS ROLLED GOLD PLATER, PROVIDED INFORMATION REGARDING PT. HE STATED HE WILL CALL ME BACK FOR UPDATES. Addendum: 11/19/21 at 1758 by [facility] electronics warfare technician RECEIVED CALL FROM URIEL VARGAS , NO BED AVAILABLE TONIGHT FOR TRANSFER, WILL TRY AGAIN TOMORROW.
[2021-11-19 11:30] VITALS: BP_SYST 132
[2021-11-19 16:00] VITALS: BP_SYST 122
--- NOTE | 2021-11-19 18:35 | NUR ---
CLOSING NOTE: PT REMAINED STABLE THROUGHOUT THE DAY. NO DISTRESS NOTED. STILL AFIB UNCONTROLLED 110-120S ON THE MONITOR, BUT OTHERWISE STABLE VITAL SIGNS. ALL CARE NEEDS MET AT THIS TIME. REPOSITIONED EVERY 2 HOURS TO PREVENT SKIN BREAKDOWN. STILL PENDING [facility] TRANSFER. WILL ENDORSE CARE TO [facility].
[2021-11-20 00:40] VITALS: BP_SYST 134
[2021-11-20] MEDS ORDERED: NACL 0.9% 1,000 ML IV SCH (08:30)
--- NOTE | 2021-11-20 09:00 | NUR ---
DISCHARGE PLANNING Faxed updated pt info to [facility]. Addendum: 11/20/21 at 1132 by Aaliyah Gonzalez RN Called & spoke with [facility] Aircraft Life Support Fitter Loreta, ph [phone], states AJ is assigned CM today & is looking for bed at contracted [facility]. No bed found yet.
[2021-11-20] MEDS: ATORVASTATIN 20 MG TABLET PO SCH (09:36)
[2021-11-20] MEDS: ASPIRIN 81 MG TABLET(ECOTRIN) PO SCH (09:36)
[2021-11-20] MEDS: KCL 40mEq in D5/0.45NS 1000 mL 1,000 ML IV SCH ×2 (10:00)
[2021-11-20] MEDS: D5NS 1,000 ML IV SCH ×2 (10:29→22:50)
[2021-11-20 13:13] VITALS: BP_SYST 145
[2021-11-20 16:47] VITALS: BP_SYST 139
--- NOTE | 2021-11-20 19:30 | NUR ---
OPENING NOTES: Patient received from AM shift. Patient is note alert not able to make need known, no s/s of distress is noted. Chest rise is even and unlabored on RA. Normal heart sounds present on Tele monitoring. Active bowel sounds x4, no pain noted with palpation. PICC line noted on NATALI, C/D/I, infusing D5NS. Skin is noted to be intact. Is incontinent of B&B. Patient is currently stable and safety measures are in place at this time. Patient is currently stable and safety measures are in place. Will resume care and continue to monitor throughout the shift.
[2021-11-20 20:00] VITALS: BP_SYST 116; BP_SYST 145
[2021-11-20] MEDS: dilTIAZem HCL IVP 5 MG/ML VIAL IVP PRN (23:39)
[2021-11-21] VITALS: BP_SYST 135
[2021-11-21 06:12] LABS: BASOPHILS % (AUTO) 0.4 % (0.0-2.0); EOSINOPHILS # (AUTO) 0.1 K/uL (0.0-0.4); HEMATOCRIT 31.9 % (36-48); HEMOGLOBIN 10.9 g/dL (12.0-16.0); LYMPHOCYTES # (AUTO) 2.2 K/uL (1.0-5.5); LYMPHOCYTES % (AUTO) 38.5 % (20.5-51.5); MEAN CORPUSCULAR HEMOGLOBIN 34 pg (27-31); MEAN CORPUSCULAR HGB CONC 34 % (32-36); MEAN CORPUSCULAR VOLUME 99 fL (79.0-98.0); MONOCYTES # (AUTO) 0.7 K/uL (0.0-1.0); MONOCYTES % (AUTO) 12.2 % (1.7-9.3); NEUTROPHILS # (AUTO) 2.7 K/uL (1.8-7.7); NEUTROPHILS % (AUTO) 46.9 % (40.0-70.0); PLATELET COUNT (AUTO) 301 K/uL (130-430); RED BLOOD CELL COUNT(AUTO) 3.23 MIL/uL (4.2-6.2); WHITE BLOOD COUNT (AUTO) 5.8 K/uL (4.8-10.8)
[2021-11-21 06:36] LABS: ALANINE AMINOTRANSFERASE 23 U/L (12-78); ANION GAP 10 (5-15); ASPARTATE AMINOTRANSFERASE 22 U/L (10-37); CALCIUM 10.4 mg/dL (8.4-11.0); CHLORIDE 108 mmol/L (98-107); CREATININE 0.61 mg/dL (0.55-1.30); GLUCOSE 120 mg/dL (70-99); SODIUM SERUM 139 mmol/L (136-145); TOTAL BILIRUBIN 0.8 mg/dL (0.0-1.0); UREA NITROGEN, BLOOD 1 mg/dL (8-21)
--- NOTE | 2021-11-21 06:36 | NUR ---
CLOSING NOTES: Patient is in bed resting no s/s of distress is noted at this time. Chest rise is even and unlabored on RA. Patient is unable to verbalize needs, but all current shift needs have been met, safety measures are in place, and patient is stable. Will differ current care to AM shift for continuity of care.
[2021-11-21 08:00] VITALS: BP_SYST 124
--- NOTE | 2021-11-21 08:00 | NUR ---
RECEIVED REPORT FROM SUBHASH. PT NONVERBAL. RESPONSIVE TO LIGHT STIMULI. NO SOB OR RESPIRATORY DISTRESS. RR EVEN & UNLABORED. NO PAIN NOTED VIA CABRERA RECINOS PAIN SCALE. HOB ELEVATED. NPO. IVF INFUSING. NATALI PICC DRESSING C/D/I. BEDBOUND. NEEDS ALL MET AT THIS TIME. SAFETY MEASURES IN PLACE. WILL CONTINUE TO MONITOR CLOSELY.
[2021-11-21 08:07] LABS: POTASSIUM 2.7 mmol/L (3.5-5.1)
[2021-11-21 08:42] VITALS: BP_SYST 135
[2021-11-21] MEDS: ASPIRIN 81 MG TABLET(ECOTRIN) PO SCH (08:42)
[2021-11-21] MEDS: ATORVASTATIN 20 MG TABLET PO SCH (08:42)
--- NOTE | 2021-11-21 09:00 | NUR ---
CONTACTED DR. FOLEY REGARDING LAB VALUES. ORDER FOR KRIDER WITH LIDOCAINE. ORDERS INPUTTED.
[2021-11-21] MEDS ORDERED: POTASSIUM CHLORIDE 40 MEQ, LIDOCAINE JECT 2% PF 100 MG 25 MG in NS 250 ML IV ONE (09:15)
[2021-11-21 09:40] LABS: INR 4.1 (0.8-1.2); PROTHROMBIN TIME 37.9 SECS (9.5-12.5)
[2021-11-21] MEDS: D5NS 1,000 ML IV SCH (10:32)
--- NOTE | 2021-11-21 11:00 | NUR ---
REPORT GIVEN TO SADIA FROM [facility]. PENDING TRANSFER.
--- NOTE | 2021-11-21 11:00 | NUR ---
SPOKE WITH SADIA FROM [facility] AND REPORT GIVEN. TRANSFER PENDING.
[2021-11-21 11:30] VITALS: BP_SYST 144
[2021-11-21] MEDS: dilTIAZem HCL IVP 5 MG/ML VIAL IVP PRN ×2 (12:15→17:40)
--- NOTE | 2021-11-21 12:59 | NUR ---
Spoke to Luna at [facility] [phone]-Dlubsf given-Luna stated they do not have a Med/Surgical bed at [facility]. Patient is Medicare,therefore the patient has a choice of transferring hospitals, and the will only agree to [facility]. [facility] will notify us when a bed is available.
[2021-11-21 15:41] VITALS: BP_SYST 143
--- NOTE | 2021-11-21 19:29 | NUR ---
CLOSING: PT IN NO DISTRESS. NO SOB OR RESPIRATORY DISTRESS. ON RA. REPORT GIVEN TO NIGHTSHIFT RN FOR CONTINUITY OF CARE.
--- NOTE | 2021-11-21 19:30 | NUR ---
OPENING NOTES: Patient received from AM shift. Patient is in bed resting no s/s of distress is noted at this time. Chest rise is even and unlabored on RA. Patient hear rate is tachy with HR at above 110. Hypoactive BS x4, no pain noted with palpation. Patient is currently stable, safety measures are in place. Will resume care and continue to monitor.
[2021-11-21 20:00] VITALS: BP_SYST 159
[2021-11-22] VITALS: BP_SYST 140
[2021-11-22] MEDS: dilTIAZem HCL IVP 5 MG/ML VIAL IVP PRN ×2 (00:36→06:27)
[2021-11-22] MEDS: D5NS 1,000 ML IV SCH ×3 (00:36→21:53)
--- NOTE | 2021-11-22 00:45 | NUR ---
ROUNDS: Patient is in bed resting no s/s of distress is noted at this time. Patient HR was noted to be elevated >130bpm so PRN diltiazem was administered. Patient tolerated it well and HR decreased to <120bpm. safety protocols remain in place, will continue to monitor.
--- NOTE | 2021-11-22 06:28 | NUR ---
Patient HR is elevated >140bpm. Patient was assessed and no s/s of distress was noted at this time. PRN diltiazem was administered as ordered and HR has decreased to <110bpm will continue to monitor.
--- NOTE | 2021-11-22 06:32 | NUR ---
CLOSING NOTES: Patient is in bed sleeping no s/s of distress at this time. Chest rise is even and unlabored on RA. All current shift needs have been met and patient is current stable. Safety measures remain in place, patient has call light within reach. Will differ care to AM shift for continuity of care.
[2021-11-22 07:06] LABS: ANION GAP 10 (5-15); CALCIUM 10.7 mg/dL (8.4-11.0); CHLORIDE 110 mmol/L (98-107); CREATININE 0.51 mg/dL (0.55-1.30); GLUCOSE 129 mg/dL (70-99); POTASSIUM 3.3 mmol/L (3.5-5.1); SODIUM SERUM 140 mmol/L (136-145); UREA NITROGEN, BLOOD 1 mg/dL (8-21)
[2021-11-22] MEDS ORDERED: MAGNESIUM SULFATE 50 ML IV PRN (08:00)
[2021-11-22 08:05] VITALS: BP_SYST 142
[2021-11-22] MEDS: ASPIRIN 81 MG TABLET(ECOTRIN) PO SCH (09:00)
[2021-11-22] MEDS: ATORVASTATIN 20 MG TABLET PO SCH (09:00)
[2021-11-22] MEDS: POTASSIUM CHLORIDE 40 MEQ, LIDOCAINE JECT 2% PF 100 MG 50 MG in NS 250 ML IV PRN (09:48)
[2021-11-22 16:58] VITALS: BP_SYST 110
--- NOTE | 2021-11-22 19:00 | NUR ---
pt in bed resting. pt unable to make needs known. pt aox0. rr even and unlabored on ra. pt currently npo. pt has john picc. lucho heel protectors in place. bed rails x3. call light within reach. bed alarm on. will continue to monitor.
[2021-11-22 21:45] VITALS: BP_SYST 166
[2021-11-22] MEDS: METOPROLOL TARTRATE 5 MG/5 ML AMPUL IVP PRN (22:24)
--- NOTE | 2021-11-22 23:00 | NUR ---
pt bp and hr elevated. metoprolol was given per emar. will continue monitor.
[2021-11-23 01:23] VITALS: BP_SYST 143
[2021-11-23] MEDS: D5NS 1,000 ML IV SCH (05:53)
[2021-11-23 06:54] LABS: CALCIUM 10.1 mg/dL (8.4-11.0); CHLORIDE 111 mmol/L (98-107); CREATININE 0.71 mg/dL (0.55-1.30); GLUCOSE 120 mg/dL (70-99); SODIUM SERUM 141 mmol/L (136-145); UREA NITROGEN, BLOOD 2 mg/dL (8-21)
[2021-11-23 07:29] LABS: ANION GAP 12 (5-15)
--- NOTE | 2021-11-23 07:29 | NUR ---
bedside report given. pt in bed asleep. pt does not appear to be in distress. endorse care to day rn.
[2021-11-23 08:09] LABS: POTASSIUM 2.6 mmol/L (3.5-5.1)
[2021-11-23] MEDS: ASPIRIN 81 MG TABLET(ECOTRIN) PO SCH (09:00)
[2021-11-23] MEDS: ATORVASTATIN 20 MG TABLET PO SCH (09:00)
[2021-11-23] MEDS: POTASSIUM CHLORIDE 40 MEQ, LIDOCAINE JECT 2% PF 100 MG 50 MG in NS 250 ML IV PRN (09:07)
[2021-11-23 11:32] VITALS: BP_SYST 142
--- NOTE | 2021-11-23 13:01 | NUR ---
CM: F/u on bed assignment: per Luna/Mj,she will arrange for yany Scott to call me back.
[2021-11-23 16:36] VITALS: BP_SYST 137
[2021-11-23] MEDS ORDERED: DEXTROSE 50% JECT 50 ML DISP.SYRIN IVP PRN (17:45)
[2021-11-23 20:06] VITALS: BP_SYST 151
[2021-11-23] MEDS ORDERED: *TPN PER PHARMACY XX SCH (21:00)
[2021-11-23] MEDS: INSULIN REGULAR, HUMAN 100 UNITS/ML, 10 ML VIAL (humuLIN R) SUBCUT PRN (21:58)
[2021-11-23] MEDS: dilTIAZem HCL IVP 5 MG/ML VIAL IVP PRN (22:34)
[2021-11-24] MEDS: D5NS 1,000 ML IV SCH ×3 (01:02→21:00)
[2021-11-24 01:33] VITALS: BP_SYST 158
--- NOTE | 2021-11-24 02:13 | NUR ---
1930 Pt. in bed, hob at 40 degrees, no acute distress, eyes open, non verbal will monitor. 2200 Pt. HR high, given cardizem 10 mg ivp, vss suctioned prn with scant secretions noted pox wnl 0030 Pt. still has high HR, given morphine 1mg ivp for possible pain, bp wnl. 0200 Pt. suctioned prn, hob at 35 degrees, no acute distress, pox wnl
[2021-11-24] MEDS: INSULIN REGULAR, HUMAN 100 UNITS/ML, 10 ML VIAL (humuLIN R) SUBCUT PRN (05:23)
--- NOTE | 2021-11-24 06:19 | NUR ---
0600 Pt. needs met this shift, vss, turned q2, kept dry . Hob at 35 degrees, no distress noted.
[2021-11-24 07:44] LABS: BASOPHILS # (AUTO) 0.1 K/uL (0.0-0.2); BASOPHILS % (AUTO) 0.9 % (0.0-2.0); EOSINOPHILS % (AUTO) 0.2 % (0.0-4.0); HEMATOCRIT 30.6 % (36-48); HEMOGLOBIN 10.3 g/dL (12.0-16.0); LYMPHOCYTES # (AUTO) 1.4 K/uL (1.0-5.5); LYMPHOCYTES % (AUTO) 24.5 % (20.5-51.5); MEAN CORPUSCULAR HEMOGLOBIN 34 pg (27-31); MEAN CORPUSCULAR HGB CONC 34 % (32-36); MEAN CORPUSCULAR VOLUME 100 fL (79.0-98.0); MONOCYTES # (AUTO) 0.5 K/uL (0.0-1.0); MONOCYTES % (AUTO) 9.6 % (1.7-9.3); NEUTROPHILS # (AUTO) 3.6 K/uL (1.8-7.7); NEUTROPHILS % (AUTO) 64.8 % (40.0-70.0); PLATELET COUNT (AUTO) 313 K/uL (130-430); RED BLOOD CELL COUNT(AUTO) 3.05 MIL/uL (4.2-6.2); RED CELL DISTRIBUTION WIDTH 14.1 % (9.0-15.0); WHITE BLOOD COUNT (AUTO) 5.5 K/uL (4.8-10.8)
[2021-11-24 08:00] VITALS: BP_SYST 156; BP_SYST 160
[2021-11-24 08:02] LABS: CALCIUM 11.1 mg/dL (8.4-11.0); CREATININE 0.85 mg/dL (0.55-1.30); GLUCOSE 103 mg/dL (70-99); SODIUM SERUM 145 mmol/L (136-145); UREA NITROGEN, BLOOD 2 mg/dL (8-21)
[2021-11-24 08:16] LABS: ANION GAP 9 (5-15); CHLORIDE 113 mmol/L (98-107)
[2021-11-24 08:28] LABS: PHOSPHORUS 2.4 mg/dL (2.7-4.5)
[2021-11-24 08:34] LABS: POTASSIUM 2.8 mmol/L (3.5-5.1)
[2021-11-24] MEDS: ASPIRIN 81 MG TABLET(ECOTRIN) PO SCH (09:00)
[2021-11-24] MEDS: ATORVASTATIN 20 MG TABLET PO SCH (09:00)
[2021-11-24] MEDS ORDERED: POTASSIUM CHLORIDE 40 MEQ in 0.45% NS 250 ML IV ONE (11:00)
[2021-11-24 12:57] VITALS: BP_SYST 134
[2021-11-24] MEDS ORDERED: POTASSIUM CHLORIDE 40 MEQ in NS 250 ML IV ONE (16:00)
[2021-11-24] MEDS ORDERED: KCL 40 mEq in 100 mL (PREMIX) 250 ML IV ONE (16:00)
[2021-11-24 16:38] VITALS: BP_SYST 130
[2021-11-24 19:00] VITALS: BP_SYST 151
--- NOTE | 2021-11-24 19:15 | NUR ---
change of shift.pt.presents quiescent affect;calm,withdrawn,flat.pt.presents asphasic speech status.pt.presents picc line; location lt.bicept intact;patent iv fluids infusing.general status stable.absent distress.respiratory status stable;unlabored@ room air.call light/telephone w/in access of the pt.
[2021-11-24 20:00] VITALS: BP_SYST 151
--- NOTE | 2021-11-24 20:00 | NUR ---
pt.assessed.v/s assessed value wnl.note b/p,hr status.02-sat%=98%.unlabored.picc intact iv fluids infusing.per flacc pain mgx pt.absent facial grimaces/body posturing.pt.assessed for cleanliness.pt.repositioned.call light/telephone placed w/in access of the pt.
[2021-11-24] MEDS ORDERED: TPN CENTRAL IV SCH ×8 (21:00)
[2021-11-24] MEDS ORDERED: MVI IV SCH ×8 (21:00)
[2021-11-24] MEDS ORDERED: MAGNESIUM SULFATE IV SCH ×8 (21:00)
[2021-11-24] MEDS ORDERED: K PHOS IV SCH ×8 (21:00)
[2021-11-24] MEDS ORDERED: [UNRECOGNIZED DRUG - OTHER] IV SCH ×8 (21:00)
--- NOTE | 2021-11-24 21:00 | NUR ---
2100p medications administered.tpn/lipids administration intiated per protocol;stanislav acted a co-sign.k+rider;40meq's administered. via picc line.intact;patent.per flacc pain mgx pt.absent facial grimaces/body posturing.call light/telephone w/in access of the pt.
--- NOTE | 2021-11-24 22:00 | NUR ---
pt.assessed.pt.presents quiescent affect calm,resting.picc line intact iv fluids,tpn/lipids infusing.k+rider infusing.per flacc pain mgx pt.absent facial grimaces/body posturing.pt.assessed for cleanliness.pt.repositioned.call light/telephone placed w/in access of the pt.
[2021-11-24] MEDS: FAT EMULSIONS 250 ML IV SCH (22:04)
[2021-11-24] MEDS: METOPROLOL TARTRATE 5 MG/5 ML AMPUL IVP PRN (23:02)
[2021-11-25] VITALS (8 sets, daily range): BP systolic 140–160
--- NOTE | 2021-11-25 | NUR ---
pt.assessed.v/s assessed values note b/p status elevated.i have administered lopressor;5mg ivp.to assess the efficacy of the medication per protocol.picc line intact iv fluids,tpn/lipids infusing.per flacc pain mgx pt.absent facial grimaces/body posturing pt.assessed for cleanliness.pt.repositioned.call light/telephone placed w/in access of the pt.
--- NOTE | 2021-11-25 02:00 | NUR ---
pt.assessed.pt.presents quiescent affect;calm,somnolent.picc line intact.iv fluids,tpn/lipids infusing.per flacc pain mgx pt.absent facial grimaces/body posturing.pt.assessed for cleanliness.pt.repositioned.call light/telephone placed w/in access of the pt.
--- NOTE | 2021-11-25 04:00 | NUR ---
pt.assessed.pt.presents quiescent affect;calm,somnolent.picc line intact iv fluids,tpn/lipids infusing.per flacc pain mgx pt.absent facial grimaces/body posturing.pt.assessed for cleanliness.pt.repositioned.call light/telephone placed w/in access of the pt.
--- NOTE | 2021-11-25 06:00 | NUR ---
pt.assessed.picc line intact.i have attended to the picc line dsg change.iv fluids,tpn/lipids infusing.per flacc pain mgx pt.absent facial grimaces/body posturing.pt.assessed for cleanliness.pt.repositioned.02-sat%=98%.call light/telephone placed w/in access of the pt.
[2021-11-25 07:50] LABS: ALANINE AMINOTRANSFERASE 17 U/L (12-78); ANION GAP 9 (5-15); ASPARTATE AMINOTRANSFERASE 27 U/L (10-37); CALCIUM 10.6 mg/dL (8.4-11.0); CHLORIDE 117 mmol/L (98-107); GLUCOSE 150 mg/dL (70-99); PHOSPHORUS 1.3 mg/dL (2.7-4.5); POTASSIUM 3.2 mmol/L (3.5-5.1); SODIUM SERUM 149 mmol/L (136-145); TOTAL BILIRUBIN 0.9 mg/dL (0.0-1.0); UREA NITROGEN, BLOOD 5 mg/dL (8-21)
--- NOTE | 2021-11-25 08:02 | NUR ---
OPENING NOTES: PATIENT RESTING IN BED. BREATHING EVEN AND NON LABORED TO ROOM RA. PICC LINE IN PLACED AND INFUSING WELL. BED LOCKED, ALARM ON AND IN LOWEST POSITION FALL AND SAFETY MEASURES REINFORCED . CALL LIGHT WITHIN REACH.
[2021-11-25] MEDS: ATORVASTATIN 20 MG TABLET PO SCH (09:00)
[2021-11-25] MEDS: ASPIRIN 81 MG TABLET(ECOTRIN) PO SCH (09:00)
[2021-11-25] MEDS ORDERED: POTASSIUM CHLORIDE 40 MEQ, LIDOCAINE JECT 2% PF 100 MG 50 MG in NS 250 ML IV PRN (09:15)
[2021-11-25] MEDS: METOPROLOL TARTRATE 5 MG/5 ML AMPUL IVP PRN (10:32)
--- NOTE | 2021-11-25 10:32 | NUR ---
RN NOTES/ HIGH BP/HR(PRN LOPRESSOR GIVEN): BLOOD PRESSURE 165/111; HR 120' S TO 130'S. LOPRESSOR IV ORDERED GIVEN.
--- NOTE | 2021-11-25 11:47 | NUR ---
Discharge Planning: [facility] spoke to Roberta at [facility] [phone] LM for [facility] the CM. Addendum: 11/25/21 at 1252 by Dottie Colon RN Provided and faxed the undated clinicals to [facility] per request. Lorena stated [facility] medical laboratory manager still not approved the transfer and [facility] is not accepting due to high heart rates. Dr Lewis made aware.
--- NOTE | 2021-11-25 12:00 | NUR ---
RN NOTES: PATIENT RESTING IN BED. ORAL CARE DONE. SUCTION PATIENT. NO S/S OF ACUTE DISTRESS NOTED.
--- NOTE | 2021-11-25 13:16 | NUR ---
ST EVALUATION COMPLETED. ST TX NOT INDICATED AT THIS TIME. RECOMMEND NPO WITH ALTERNATIVE MEANS OF NUTRITION DUE TO INCONSISTENT SWALLOW FUNCTION AND SAFETY.
[2021-11-25] MEDS: POTASSIUM CHLORIDE 40 MEQ, LIDOCAINE JECT 2% PF 100 MG 50 MG in NS 250 ML IV PRN (13:48)
[2021-11-25 14:06] LABS: INR 1.4 (0.8-1.2); PROTHROMBIN TIME 14.2 SECS (9.5-12.5)
[2021-11-25] MEDS: D5NS 1,000 ML IV SCH (15:32)
--- NOTE | 2021-11-25 18:59 | NUR ---
CLOSING NOTES: PATIENT RESTING IN BED. NO S/S OF ACUTE DISTRESS NOTED. IV PATENT AND INFUSING WELL. FALL AND SAFETY MEASURES RENDERED. CALL LIGHT WITHIN REACH.
--- NOTE | 2021-11-25 19:15 | NUR ---
change of shift.pt.presents quiescent affect;calm,resting.pt.presents speech status:asphasic.pt.presents picc line:location: lt.biecept;intact.iv fluids,tpn/lipids infusing. pt.presents speech status non-verbal.pt.presents elimination status;incontinent:bladder/bowel.general status stable/respiratory status stable;unlabored@room air.call light/telephone w/in access of the pt.
--- NOTE | 2021-11-25 20:00 | NUR ---
pt.assessed.v/s assessed values wnl.note b/p status.02-sat%=100%.picc line intact iv fluids,tpn/lipids infusing.per flacc pain mgx pt.absent facial grimaces/body posturing.pt.assessed cleanliness.pt.repositioned.call light/telephone placed w/in access of the pt.
--- NOTE | 2021-11-25 20:30 | NUR ---
blood glucose assessed value;134mg/dl.
[2021-11-25] MEDS: FAT EMULSIONS 250 ML IV SCH (20:51)
[2021-11-25] MEDS ORDERED: MAGNESIUM SULFATE IV SCH ×8 (21:00)
[2021-11-25] MEDS ORDERED: K PHOS IV SCH ×8 (21:00)
[2021-11-25] MEDS ORDERED: [UNRECOGNIZED DRUG - OTHER] IV SCH ×8 (21:00)
[2021-11-25] MEDS ORDERED: MVI IV SCH ×8 (21:00)
[2021-11-25] MEDS ORDERED: TPN CENTRAL IV SCH ×8 (21:00)
--- NOTE | 2021-11-25 21:00 | NUR ---
2100p medications administered:tpn/lipids.selina girong/lashellg acted as 2nd co-sign.tpn/lipids administered via picc line. per flacc pain mgx pt.absent facial grimaces/body posturing.call light/telephone placed w/in access of the pt.
--- NOTE | 2021-11-25 22:00 | NUR ---
pt.assessed.pt.presents quiescent affect;calm,somnolent.per flacc pain mgx pt.absent facial grimaces/body posturing. pt.assessed for cleanliness.pt.repositioned.picc line intact iv fluids,tpn/lipids infusing.call light/telephone placed w/in access of the pt.
[2021-11-26] VITALS: BP_SYST 135
--- NOTE | 2021-11-26 | NUR ---
pt.assessed.v/s assessed values wnl.per flacc pain mgx pt.absent facial grimaces/body posturing.o2-sat%=98%.pt.assessed for cleanliness.pt.cleaned/repositioned.picc line intact iv fluids,tpn/lipids infusing.call light/telephone placed w/in access of the pt.
--- NOTE | 2021-11-26 02:00 | NUR ---
pt.assessed.picc line intact iv fluids,tpn/lipids infusing.per flacc pain mgx pt.absent facial grimaces/body posturing. pt.assessed for cleanliness.pt.repositioned.call light/telephone placed w/in access of the pt.
[2021-11-26] MEDS: D5NS 1,000 ML IV SCH ×3 (04:53→23:03)
--- NOTE | 2021-11-26 06:00 | NUR ---
pt.assessed.pt.presented rapid h/r:>140's.cardizem:10mg ivp administered.blood glucose assessed value;163mg/dl.insulin; regular:2-u administered.picc line intact iv fluids,tpn/lipids infusing.pt.cleaned/repositioned.call light/telephone place w/in access of the pt.
[2021-11-26 06:08] LABS: BASOPHILS % (AUTO) 0.6 % (0.0-2.0); EOSINOPHILS # (AUTO) 0.1 K/uL (0.0-0.4); EOSINOPHILS % (AUTO) 0.9 % (0.0-4.0); HEMATOCRIT 30.6 % (36-48); HEMOGLOBIN 10.6 g/dL (12.0-16.0); LYMPHOCYTES # (AUTO) 1.8 K/uL (1.0-5.5); LYMPHOCYTES % (AUTO) 23.6 % (20.5-51.5); MEAN CORPUSCULAR HEMOGLOBIN 34 pg (27-31); MEAN CORPUSCULAR HGB CONC 35 % (32-36); MEAN CORPUSCULAR VOLUME 99 fL (79.0-98.0); MONOCYTES # (AUTO) 0.8 K/uL (0.0-1.0); MONOCYTES % (AUTO) 10.9 % (1.7-9.3); NEUTROPHILS # (AUTO) 4.8 K/uL (1.8-7.7); PLATELET COUNT (AUTO) 318 K/uL (130-430); RED BLOOD CELL COUNT(AUTO) 3.09 MIL/uL (4.2-6.2); RED CELL DISTRIBUTION WIDTH 14.4 % (9.0-15.0); WHITE BLOOD COUNT (AUTO) 7.6 K/uL (4.8-10.8)
[2021-11-26] MEDS: dilTIAZem HCL IVP 5 MG/ML VIAL IVP PRN (06:12)
[2021-11-26] MEDS: INSULIN REGULAR, HUMAN 100 UNITS/ML, 10 ML VIAL (humuLIN R) SUBCUT PRN (06:14)
[2021-11-26 07:43] VITALS: BP_SYST 128
[2021-11-26 07:47] LABS: ANION GAP 8 (5-15); CALCIUM 10.5 mg/dL (8.4-11.0); CHLORIDE 109 mmol/L (98-107); GLUCOSE 164 mg/dL (70-99); PHOSPHORUS 1.8 mg/dL (2.7-4.5); SODIUM SERUM 139 mmol/L (136-145); UREA NITROGEN, BLOOD 7 mg/dL (8-21)
[2021-11-26 07:56] LABS: POTASSIUM 2.9 mmol/L (3.5-5.1)
[2021-11-26] MEDS ORDERED: MAGNESIUM SULFATE 4 GM in D5W 250 ML IV ONE (08:45)
[2021-11-26] MEDS: ASPIRIN 81 MG TABLET(ECOTRIN) PO SCH (09:00)
[2021-11-26] MEDS: ATORVASTATIN 20 MG TABLET PO SCH (09:00)
[2021-11-26] MEDS: POTASSIUM CHLORIDE 40 MEQ, LIDOCAINE JECT 2% PF 100 MG 50 MG in NS 250 ML IV PRN (10:51)
--- NOTE | 2021-11-26 11:09 | NUR ---
Nutritional F/U Admitting Diagnosis Altered Mental Status Reviewed Pertinent Medical/Surgical Hx Medical Record Other Medical History Comment: Previous CVA w/ R side deficits, Afib (warfarin) SARS-CoV-2 Ag (Rapid) Negative 11/[address] bedside visit deferred d/t high workload. Per physician notes 11/15, family refusing parenteral and enteral feeding; pt now started on TPN (11/24) even though family is refusing artificial feeding per physician notes; awaiting transfer to [facility]. Pt had ST swallow evaluation 11/25 ST recommended NPO w/ alternate means of nutrition d/t inconsistent swallow function and safety. Per EMR review, Mark Anthony scale 10- no PIs noted; 2+ pitting edema generalized and to L. arm; Last BM x1 11/26. Current TPN providing 1464 kcals/day, 61 g protein/day, 1560 ml total volume daily, GIR 3 mg/kg/min. TPN meeting 99% of lower end of estimated caloric needs and 86% of upper end pf estimated protein needs. Current Diet Order/Nutrition Support NPO; TPN D40, AA8.5 at 60 ml/hr, 20%IL at 5 ml/hr via central line Patient/Significant Other Unable To Verbalize Education Provided Not Indicated Pertinent Medications D5KCl at 80 ml/hr x 12 hr (170 kcals) Pertinent Labs K 2.9 L, BUN 7 L, BG 164 H, BG POC 163 H, P 1.8 L, Mg 1 L, TG 100 WNL (11/24) Height (Feet) 5 feet Height (Inches) 6.00 inches Weight (Pounds) 145 pounds Stable since 11/12 Weight (Calculated Kilograms) 65.335130 kilograms Patient Weight 65.771 kg Body Mass Index 23.40 kg/m2 %IBW 111 [place]/Adjusted Body Weight 130#/59.1 Kg Weight Status Appropriate Food Allergies No Skin Integrity Comment: Mark Anthony score = 11; no skin breakdown noted in EMR Current % PO NPO Estimated Energy Expenditure (kcals/day) 1814-0629 Kcals/d (25-30 Kcals/Kg) Estimated Protein Required (g/day) 47-71 gm pro/d (0.8-1.2 gm pro/Kg) Estimated Fluid Required (l/day) 3530-7605 ml/d or per MD discretion Problem/Etiology/Signs/Symptoms Inadequate oral intake r/t swallowing difficulty AEB ST recommendation to keep pt NPO and initiation of TPN. Expected Outcomes/Goals Monitor tolerance of nutrition support w/ goal of pt meeting greater than 75% of estimated needs, labs trending WNL, normal GI function, skin integrity, wt maintenance. Dietitian Recommendations Continue w/ current TPN order: D40, AA8.5 at 60 ml/hr, 20%IL at 5 ml/hr via central line Follow Up High Risk: F/U in 2-3 days
--- NOTE | 2021-11-26 11:10 | NUR ---
Dietitian Recommendations * Continue w/ current TPN order: D40, AA8.5 at 60 ml/hr, 20%IL at 5 ml/hr via central line Please refer to Nutrition F/U for details.
[2021-11-26 11:33] VITALS: BP_SYST 151
[2021-11-26 15:58] VITALS: BP_SYST 131
--- NOTE | 2021-11-26 18:45 | NUR ---
SPOKE WITH [facility] PER CM, PT IS UNABLE OT TRANSFER TO [facility] BECAUSE THERE IS NO ROOM AVAILABLE TO TRANSFER PT. FAMILY IS REFUSING OTHER [facility] LOCATIONS. CM WILL REACH OUT TO [facility] TOMORROW TO FINALIZE DISCHARGE. PT IS STABLE AT THIS TIME. WILL CONTINUE TO MONITOR
[2021-11-26 20:00] VITALS: BP_SYST 149
--- NOTE | 2021-11-26 20:15 | NUR ---
Dr. Michelle was contacted because family was concerned with the level of care that the patient needed and the daughter's ability to provide needed care. Discharge was deemed unsafe and orders were received to Hold discharge and refer to case management. Addendum: 11/27/21 at 0734 by Christiano dip painter Documentation error wrong patient
[2021-11-26] MEDS ORDERED: K PHOS IV SCH ×9 (21:00)
[2021-11-26] MEDS ORDERED: POTASSIUM ACETATE IV SCH ×9 (21:00)
[2021-11-26] MEDS ORDERED: [UNRECOGNIZED DRUG - OTHER] IV SCH ×9 (21:00)
[2021-11-26] MEDS ORDERED: TPN CENTRAL IV SCH ×9 (21:00)
[2021-11-26] MEDS ORDERED: SODIUM ACETATE IV SCH ×9 (21:00)
[2021-11-26] MEDS: FAT EMULSIONS 250 ML IV SCH (22:59)
[2021-11-27 05:00] VITALS: BP_SYST 118
[2021-11-27 05:39] LABS: BASOPHILS % (AUTO) 0.3 % (0.0-2.0); EOSINOPHILS # (AUTO) 0.1 K/uL (0.0-0.4); EOSINOPHILS % (AUTO) 1.1 % (0.0-4.0); HEMATOCRIT 28.6 % (36-48); HEMOGLOBIN 9.9 g/dL (12.0-16.0); LYMPHOCYTES # (AUTO) 1.4 K/uL (1.0-5.5); LYMPHOCYTES % (AUTO) 17.2 % (20.5-51.5); MEAN CORPUSCULAR HEMOGLOBIN 34 pg (27-31); MEAN CORPUSCULAR HGB CONC 35 % (32-36); MEAN CORPUSCULAR VOLUME 99 fL (79.0-98.0); MONOCYTES # (AUTO) 0.7 K/uL (0.0-1.0); MONOCYTES % (AUTO) 8.3 % (1.7-9.3); NEUTROPHILS # (AUTO) 6.1 K/uL (1.8-7.7); NEUTROPHILS % (AUTO) 73.1 % (40.0-70.0); PLATELET COUNT (AUTO) 241 K/uL (130-430); WHITE BLOOD COUNT (AUTO) 8.4 K/uL (4.8-10.8)
[2021-11-27 06:35] LABS: ANION GAP 5 (5-15); CALCIUM 9.3 mg/dL (8.4-11.0); CHLORIDE 105 mmol/L (98-107); CREATININE 0.62 mg/dL (0.55-1.30); GLUCOSE 114 mg/dL (70-99); PHOSPHORUS 2.4 mg/dL (2.7-4.5); SODIUM SERUM 139 mmol/L (136-145); UREA NITROGEN, BLOOD 10 mg/dL (8-21)
[2021-11-27 06:50] LABS: POTASSIUM 2.8 mmol/L (3.5-5.1)
--- NOTE | 2021-11-27 07:35 | NUR ---
Closing Note: Report given to Eduar VILLANUEVA. Eduar was given report on patient's critical K+ value of 2.8 and will carry out PRN IV order for coverage.
[2021-11-27 07:55] VITALS: BP_SYST 137
[2021-11-27 08:05] VITALS: BP_SYST 137
[2021-11-27] MEDS: POTASSIUM CHLORIDE 40 MEQ, LIDOCAINE JECT 2% PF 100 MG 50 MG in NS 250 ML IV PRN (08:30)
[2021-11-27] MEDS: ASPIRIN 81 MG TABLET(ECOTRIN) PO SCH (09:00)
[2021-11-27] MEDS: ATORVASTATIN 20 MG TABLET PO SCH (09:00)
--- NOTE | 2021-11-27 09:49 | NUR ---
CM: SPOKE WITH RALF LUND ([facility]) SAID SHE HAS BEEN TALKING TO FAMILY OF PATIENT ABOUT MOVING PT TO [facility], HAS FOUND AN ACCEPTING BED AT [facility], FAMILY REFUSING INSISTING FOR BED AT [facility], FAMILY EMPHASIZING THEY DON'T WANT PT TO COME HOME. RALF WILL MAKE SUGGESTION OF HOSPICE WHEREBY SHE CAN THEN REQUEST AGAIN BED AT [facility] UNDER HOSPICE CARE, STATES SHE WILL HAVE DISCUSSION WITH PCP AND FAMILY TO TRY AND FIND SOLUTION FOR FAMILY AND MEDICAL TEAM.
[2021-11-27 13:08] VITALS: BP_SYST 132
[2021-11-27 16:26] VITALS: BP_SYST 135
[2021-11-27] MEDS: D5NS 1,000 ML IV SCH (18:00)
--- NOTE | 2021-11-27 19:10 | NUR ---
RECEIVED BEDSIDE REPORT. PT IN BED RESTING. SUCTION PROVIDED FOR SECRETIONS. PT AWAKE AND UNABLE TO MAKE NEEDS KNOWN. WARM BLANKETS PLACED ON PT. ALL OTHER NEEDS MEET AT THIS TIME. WILL CONTINUE TO MONITOR.
[2021-11-27] MEDS ORDERED: TPN CENTRAL IV SCH ×9 (21:00)
[2021-11-27] MEDS ORDERED: [UNRECOGNIZED DRUG - OTHER] IV SCH ×9 (21:00)
[2021-11-27] MEDS ORDERED: POTASSIUM CHLORIDE IV SCH ×9 (21:00)
[2021-11-27] MEDS ORDERED: K PHOS IV SCH ×9 (21:00)
[2021-11-27] MEDS ORDERED: SODIUM ACETATE IV SCH ×9 (21:00)
[2021-11-27] MEDS: FAT EMULSIONS 250 ML IV SCH (21:43)
[2021-11-27 22:08] VITALS: BP_SYST 128
[2021-11-28 00:59] VITALS: BP_SYST 155
[2021-11-28 01:54] VITALS: BP_SYST 161
[2021-11-28] MEDS: METOPROLOL TARTRATE 5 MG/5 ML AMPUL IVP PRN (01:58)
--- NOTE | 2021-11-28 02:00 | NUR ---
PT HR AND BP ELEVATED. PT MEDICATED PER EMAR. WILL CONTINUE TO MONITOR HR AND BP.
[2021-11-28] MEDS: D5NS 1,000 ML IV SCH ×2 (05:48→18:31)
[2021-11-28 06:51] LABS: BILIRUBIN,DIRECT 0.3 mg/dL (0.0-0.3)
--- NOTE | 2021-11-28 07:56 | NUR ---
HOLD PHYSICAL THERAPY ROM EXERCISES TODAY DUE TO PATIENT HAVING ELEVATED HEART RATE. RN IS IN AGREEMENT.
[2021-11-28 08:00] VITALS: BP_SYST 143
[2021-11-28 08:08] LABS: ALANINE AMINOTRANSFERASE 41 U/L (12-78); ALBUMIN 1.8 g/dL (3.4-4.8); ANION GAP 6 (5-15); ASPARTATE AMINOTRANSFERASE 58 U/L (10-37); CALCIUM 9.3 mg/dL (8.4-11.0); CHLORIDE 106 mmol/L (98-107); CREATININE 0.61 mg/dL (0.55-1.30); GLUCOSE 154 mg/dL (70-99); POTASSIUM 3.6 mmol/L (3.5-5.1); SODIUM SERUM 136 mmol/L (136-145); TOTAL BILIRUBIN 0.7 mg/dL (0.0-1.0); UREA NITROGEN, BLOOD 11 mg/dL (8-21)
[2021-11-28] MEDS: ATORVASTATIN 20 MG TABLET PO SCH (09:00)
[2021-11-28] MEDS: ASPIRIN 81 MG TABLET(ECOTRIN) PO SCH (09:00)
--- NOTE | 2021-11-28 09:00 | NUR ---
CM: SPOKE TO VIBORG KEVON ARAMBULA REGARDING HOSPICE CARE FOR PT, SHE STATED THAT [employer] [employer] CAN OFFER HER HOSPICE CARE WITHIN PT'S PRIVATE HOME, AND IF SHE WANTS TO SNF WITH HOSPICE CARE THE FAMILY WILL PAY OUT OF POCKET FOR THE SERVICE. Addendum: 11/28/21 at 1219 by Rupa Lipscomb RN CM: CALL AND SPOKE TO CHON GIBSON''S DAUGHTER ABOUT HOSPICE CARE FOR HER MOTHER, SUGGESTED THAT FAMILY MAY BE ABLE TO FIND PLACEMENT AT A SNF FACILITY CLOSE TO DESIRED LOCATION, DAUGHTER EMPHASIZES THAT SHE WILL ACCEPT THIS A POSSIBILITY LONG THERE ARE NO OUT OF POCKET COST TO HER OR THE FATHER. REPORTED THIS DISCUSSION TO DR. FOLEY, A LIST OF SNF FACILITIES WERE GIVEN ([facility], [facility], AND [facility]) TO LOOK AT AND OFFER POSSIBILITIES FOR THE FAMILY.
[2021-11-28 09:02] LABS: BASOPHILS % (AUTO) 0.5 % (0.0-2.0); EOSINOPHILS # (AUTO) 0.1 K/uL (0.0-0.4); EOSINOPHILS % (AUTO) 1.3 % (0.0-4.0); HEMATOCRIT 28.8 % (36-48); HEMOGLOBIN 9.9 g/dL (12.0-16.0); MEAN CORPUSCULAR HEMOGLOBIN 34 pg (27-31); MEAN CORPUSCULAR HGB CONC 35 % (32-36); MEAN CORPUSCULAR VOLUME 100 fL (79.0-98.0); MONOCYTES # (AUTO) 0.7 K/uL (0.0-1.0); NEUTROPHILS # (AUTO) 6.3 K/uL (1.8-7.7); NEUTROPHILS % (AUTO) 68.2 % (40.0-70.0); PLATELET COUNT (AUTO) 253 K/uL (130-430); RED BLOOD CELL COUNT(AUTO) 2.89 MIL/uL (4.2-6.2); WHITE BLOOD COUNT (AUTO) 9.2 K/uL (4.8-10.8)
--- NOTE | 2021-11-28 10:54 | NUR ---
Patient is lying in bed with HOB elevated semifowler's position. Pt required prn oral suctioning. Pt remains NPO due to difficulty swallowing. Pt remains nonverbal. Repirations even et unlabored. No s/s acute distress noted. Will continue to monitor.
--- NOTE | 2021-11-28 12:00 | NUR ---
DISTRICT HOME ECONOMICS AGENT ANA Raiette responded to a request for social service support from [employer]er Rupa in obtaining hospice services for patient and family. RECRUITING ASSOCIATE contacted the following hospice providers to inquire into their ability to provide services to patients receiving TPN or PPN, as well as patient receiving these services in a SNF: - [facility] - packet faxed for review - [facility] - packet faxed for review - [facility]- packet faxed for review - [facility] - packet faxed for review - [facility] - awaiting response - Addendum: 11/29/21 at 0850 by Priscilla PEREZ LATE ENTRY Contact occurred 11/28/2021 @1600 [facility] contacted this RECRUITING ASSOCIATE Priscilla to provide an update that they were able to make contact with patient's daughter Apple to provide information regarding Hospice Services. According to [facility] staff, patient's daughter expressed not wanting to proceed with hospice and also shared she does not want patient to return home and is only interested in patient transferring to a SNF with no out of pocket costs. RECRUITING ASSOCIATE acknowledged the information and effort completed by [facility] staff at this time.
[2021-11-28] MEDS: INSULIN REGULAR, HUMAN 100 UNITS/ML, 10 ML VIAL (humuLIN R) SUBCUT PRN ×2 (12:09→22:14)
[2021-11-28] MEDS: dilTIAZem HCL IVP 5 MG/ML VIAL IVP PRN (12:26)
[2021-11-28 12:33] VITALS: BP_SYST 148
[2021-11-28 12:40] LABS: PHOSPHORUS 2.5 mg/dL (2.7-4.5)
--- NOTE | 2021-11-28 16:08 | NUR ---
Pt's daughter Sona Medel ([phone]) stated that she is waiting for a phone call from the pphysician with up to date prognosis regarding this pt to make a decision on discharge plans. Pt is lying in bed quietly with eyes open. No s/s acute distress noted. Daughter mentioned again that her father and she do not want pt on a ventilator. I reconfirmed the code status of DNR is on file. Will continue to monitor pt.
[2021-11-28 16:29] VITALS: BP_SYST 139
[2021-11-28 20:35] VITALS: BP_SYST 120
[2021-11-28] MEDS ORDERED: POTASSIUM ACETATE IV SCH ×8 (21:00)
[2021-11-28] MEDS ORDERED: SODIUM ACETATE IV SCH ×8 (21:00)
[2021-11-28] MEDS ORDERED: [UNRECOGNIZED DRUG - OTHER] IV SCH ×8 (21:00)
[2021-11-28] MEDS ORDERED: TPN CENTRAL IV SCH ×8 (21:00)
[2021-11-28] MEDS: FAT EMULSIONS 250 ML IV SCH (22:12)
[2021-11-29 00:10] VITALS: BP_SYST 125
--- NOTE | 2021-11-29 01:40 | NUR ---
1930 Pt. in bed, hob at 30 degrees, no distress noted, ivf of TPN and lipids infusing to left arm at rx'd rates. Will monitor. 2200 Pt. turned q2, javier care given, bs of 107. 0030 Pt. with no distress, eyes open, oral care given 0200 Pt. kept dry and clean, vss
--- NOTE | 2021-11-29 05:52 | NUR ---
0600 Pt. needs met this shift, vss, no acute distress. Turned q2, skin care given. Tolerating TPN/Lipids infusion, bs wnl. Hob at 30 degrees, no resp. distress.
[2021-11-29] MEDS: INSULIN REGULAR, HUMAN 100 UNITS/ML, 10 ML VIAL (humuLIN R) SUBCUT PRN (06:15)
[2021-11-29] MEDS: D5NS 1,000 ML IV SCH ×2 (07:01→19:31)
[2021-11-29 07:20] LABS: BASOPHILS # (AUTO) 0.1 K/uL (0.0-0.2); BASOPHILS % (AUTO) 0.6 % (0.0-2.0); EOSINOPHILS # (AUTO) 0.1 K/uL (0.0-0.4); EOSINOPHILS % (AUTO) 1.4 % (0.0-4.0); HEMATOCRIT 26.3 % (36-48); HEMOGLOBIN 8.9 g/dL (12.0-16.0); LYMPHOCYTES # (AUTO) 2.5 K/uL (1.0-5.5); LYMPHOCYTES % (AUTO) 25.8 % (20.5-51.5); MEAN CORPUSCULAR HEMOGLOBIN 34 pg (27-31); MEAN CORPUSCULAR HGB CONC 34 % (32-36); MEAN CORPUSCULAR VOLUME 101 fL (79.0-98.0); MONOCYTES # (AUTO) 0.9 K/uL (0.0-1.0); MONOCYTES % (AUTO) 9.1 % (1.7-9.3); NEUTROPHILS # (AUTO) 6.1 K/uL (1.8-7.7); NEUTROPHILS % (AUTO) 63.1 % (40.0-70.0); PLATELET COUNT (AUTO) 252 K/uL (130-430); RED BLOOD CELL COUNT(AUTO) 2.62 MIL/uL (4.2-6.2); RED CELL DISTRIBUTION WIDTH 14.3 % (9.0-15.0); WHITE BLOOD COUNT (AUTO) 9.7 K/uL (4.8-10.8)
[2021-11-29 07:47] LABS: ANION GAP 4 (5-15); CALCIUM 8.9 mg/dL (8.4-11.0); CHLORIDE 105 mmol/L (98-107); CREATININE 0.68 mg/dL (0.55-1.30); GLUCOSE 121 mg/dL (70-99); PHOSPHORUS 1.8 mg/dL (2.7-4.5); POTASSIUM 3.8 mmol/L (3.5-5.1); SODIUM SERUM 135 mmol/L (136-145); UREA NITROGEN, BLOOD 11 mg/dL (8-21)
[2021-11-29 08:00] VITALS: BP_SYST 123
[2021-11-29] MEDS: ASPIRIN 81 MG TABLET(ECOTRIN) PO SCH (09:00)
[2021-11-29] MEDS: ATORVASTATIN 20 MG TABLET PO SCH (09:00)
--- NOTE | 2021-11-29 09:20 | NUR ---
STONE GRADER ANA Wells responded to a request for support with obtaining hospice eval following patient's family meeting with physician this morning. ANA faxed packet for review to [facility] direct: fax: Addendum: 11/29/21 at 1140 by Priscilla PEREZ ANA Wells contacted [facility] to confirm receipt of packet and to obtain update. According to Mckenzie at [facility], she has received the packet and it is under review. She also shared Dictaphone Operator Allie will be reaching out to the family shortly.
--- NOTE | 2021-11-29 10:25 | NUR ---
Physical Therapy will be discharged due to the patient remaining at her prior level of mobility. Nursing will continue to incorporate ROM of the extremities during the patient's daily hygiene care and off loading protocol. Informed patient's RN.
[2021-11-29 12:36] VITALS: BP_SYST 122
--- NOTE | 2021-11-29 14:25 | NUR ---
Nutrition F/U RD reviewed pt's current EMR including diet Hx, physician notes, nursing notes, pertinent labs/meds/procedures, care trends, and care activity. Short note d/t lack of time. Current Diet Order/Nutrition Support: NPO x4 days Subjective Info: RD bedside visit deferred d/t high workload. Per EMR review, pt's family wishes to have pt D/C on hospice and D/C TPN upon D/C as well per physician notes; DNR code status; pt is no longer receiving TPN support; LBM x1 11/26; Mark Anthony scale: 10 w/ lower sacrum abrasion noted. Pt is no longer meeting nutritional needs. Low risk nutritional F/U d/t comfort measures in place; to be seen by RD within 7 days or as needed.
--- NOTE | 2021-11-29 16:15 | NUR ---
CM: LATE ENTRY: RECEIVED CALL FROM RALF LUND ([place]) , OFFERING BED AT [facility] LOCATION FOR POSSIBLE TRANSFER, STATES SHE IS WAITING FOR ACCEPTING [facility] BEFORE FINALIZING, STATES SHE WILL NOT NOTIFY THE FAMILY UNTIL SHE SPEAKS WITH [facility] FIRST, IF ACCEPTED BY [facility]. SHE WILL SET-UP TRANSPORT AT THAT TIME, UPDATED PACKAGE TAKEN TO THE FLOOR IN ANTICIPATION OF DISCHARGE, ENDORSED TO DIA BETTS RN. Addendum: 11/30/21 at 1057 by Rupa Lipscomb RN CM: SPOKE WITH RALF LUND ([place]) , STATES [facility] DECLINE TO TAKE THE PT AT THIS TIME, STATES SHE WILL START LOOKING FOR SNF FOR THE PT.
[2021-11-29 16:36] VITALS: BP_SYST 124
--- NOTE | 2021-11-29 19:00 | NUR ---
Patient has had quiet hours throughout the shift. No change in condition noted. TPN and lipids d'cd- slowly weened down. No s/s hypoglycemic reactions noted. Dr. Lewis spoke with pt's family and he stated that they have decided to stop TPN and discharge pt to hospice care. Pt's HOB elevated semifowler's psoition to decrease chance of aspiration. Pt suctioned orally and needed to clear airway. Pt remains nonverbal. Pt turned and repositioned every 2 hours and as needed for comfort measures and to maintain skin integrity.
[2021-11-29] MEDS ORDERED: [UNRECOGNIZED DRUG - OTHER] IV SCH ×8 (21:00)
[2021-11-29] MEDS ORDERED: SODIUM ACETATE IV SCH ×8 (21:00)
[2021-11-29] MEDS ORDERED: K PHOS IV SCH ×8 (21:00)
[2021-11-29] MEDS ORDERED: POTASSIUM CHLORIDE IV SCH ×8 (21:00)
[2021-11-29] MEDS ORDERED: TPN CENTRAL IV SCH ×8 (21:00)
[2021-11-30 00:20] VITALS: BP_SYST 124
[2021-11-30 08:00] VITALS: BP_SYST 123
--- NOTE | 2021-11-30 08:00 | NUR ---
OPENING NOTES: Addendum: 11/30/21 at 1047 by Savannah Nix RN WRONG TEREZA
--- NOTE | 2021-11-30 08:00 | NUR ---
OPENING NOTES: PATIENT RESTING IN BED. HOB ELEVATED. IV INFUSING WELL. BREATHING EVEN AND NO LABORED TO O2 AT 2L/NC. BED LOCKED, ALARM ON AND IN LOWEST POSITION. FALL, SAFETY AND ASPIRATION MEASURES PROVIDED.
[2021-11-30 08:09] LABS: BASOPHILS # (AUTO) 0.1 K/uL (0.0-0.2); BASOPHILS % (AUTO) 0.8 % (0.0-2.0); EOSINOPHILS # (AUTO) 0.1 K/uL (0.0-0.4); EOSINOPHILS % (AUTO) 1.3 % (0.0-4.0); HEMATOCRIT 27.7 % (36-48); HEMOGLOBIN 9.4 g/dL (12.0-16.0); LYMPHOCYTES # (AUTO) 2.5 K/uL (1.0-5.5); LYMPHOCYTES % (AUTO) 27.9 % (20.5-51.5); MEAN CORPUSCULAR HEMOGLOBIN 35 pg (27-31); MEAN CORPUSCULAR HGB CONC 34 % (32-36); MEAN CORPUSCULAR VOLUME 102 fL (79.0-98.0); MONOCYTES # (AUTO) 0.8 K/uL (0.0-1.0); MONOCYTES % (AUTO) 9.1 % (1.7-9.3); NEUTROPHILS # (AUTO) 5.5 K/uL (1.8-7.7); NEUTROPHILS % (AUTO) 60.9 % (40.0-70.0); PLATELET COUNT (AUTO) 208 K/uL (130-430); RED BLOOD CELL COUNT(AUTO) 2.71 MIL/uL (4.2-6.2); RED CELL DISTRIBUTION WIDTH 14.6 % (9.0-15.0)
[2021-11-30 08:26] LABS: ALANINE AMINOTRANSFERASE 33 U/L (12-78); ALBUMIN 1.6 g/dL (3.4-4.8); ANION GAP 3 (5-15); ASPARTATE AMINOTRANSFERASE 49 U/L (10-37); CALCIUM 9.7 mg/dL (8.4-11.0); CHLORIDE 105 mmol/L (98-107); CREATININE 0.76 mg/dL (0.55-1.30); GLUCOSE 93 mg/dL (70-99); POTASSIUM 4.2 mmol/L (3.5-5.1); SODIUM SERUM 133 mmol/L (136-145); UREA NITROGEN, BLOOD 11 mg/dL (8-21)
[2021-11-30] MEDS: D5NS 1,000 ML IV SCH ×2 (08:36→20:54)
[2021-11-30] MEDS: ASPIRIN 81 MG TABLET(ECOTRIN) PO SCH (08:37)
[2021-11-30] MEDS: ATORVASTATIN 20 MG TABLET PO SCH (08:37)
[2021-11-30 12:00] VITALS: BP_SYST 123
--- NOTE | 2021-11-30 15:00 | NUR ---
RN NOTES/INCONTINENT CARE DONE: INCONTINENT CARE DONE. NO S/S OF ACUTE DISTRESS NOTED. REPOSITIONED. WOUND CARE AT SACRAL AREA DONE. FAMILY AT BEDSIDE.
[2021-11-30 16:25] VITALS: BP_SYST 125
--- NOTE | 2021-11-30 18:41 | NUR ---
CLOSING NOTES: PATIENT RESTING IN BED. NO S/S OF ACUTE DISTRESS NOTED. FALL AND SAFETY MEASURES RENDERED. IV PATENT AND INFUSING WELL. NEEDS MET THROUGHOUT SHIFT. CALL LIGHT WITHIN REACH.
[2021-11-30 19:15] VITALS: BP_SYST 137
[2021-11-30] MEDS: dilTIAZem HCL IVP 5 MG/ML VIAL IVP PRN (21:11)
[2021-11-30 23:34] VITALS: BP_SYST 152
[2021-12-01] MEDS: dilTIAZem HCL IVP 5 MG/ML VIAL IVP PRN (06:17)
--- NOTE | 2021-12-01 07:30 | NUR ---
OPENING NOTES: PATIENT RESTING IN BED. HOB ELEVATED. PICC LINE IN PLACED AND INFUSING WELL. BREATHING EVEN AND NON LABORED TO O2 AT 2L/NC. BED LOCKED, ALARM ON AND IN LOWEST POSITION. REPOSITIONED PATIENT. FALL, SAFETY AND ASPIRATION MEASURES PROVIDED.
[2021-12-01 07:55] VITALS: BP_SYST 124
[2021-12-01] MEDS: D5NS 1,000 ML IV SCH ×2 (08:36→21:07)
[2021-12-01] MEDS: ATORVASTATIN 20 MG TABLET PO SCH (08:37)
[2021-12-01] MEDS: ASPIRIN 81 MG TABLET(ECOTRIN) PO SCH (08:37)
[2021-12-01 12:00] VITALS: BP_SYST 138
--- NOTE | 2021-12-01 14:00 | NUR ---
Incontinent Care : Incontinent care, no signs of acute distress noted, repositioned, bed lock alarm on and in lowest position. Call light within reach.
[2021-12-01 16:31] VITALS: BP_SYST 135
--- NOTE | 2021-12-01 18:35 | NUR ---
Closing Notes: Patient in bed, IV and PICC line patent and intact and infusing well. Patient breathing and unlabored to O2 at 2 l/NC. Fall and safety measures observed, kept clean and dry, no signs of distress or discomfort noted. Bed locked, alarm on and in lowest position, call light placed within reach, repositioned .
[2021-12-01 19:29] VITALS: BP_SYST 126
[2021-12-02 00:50] VITALS: BP_SYST 133
[2021-12-02 06:55] LABS: BASOPHILS % (AUTO) 0.3 % (0.0-2.0); EOSINOPHILS # (AUTO) 0.1 K/uL (0.0-0.4); EOSINOPHILS % (AUTO) 1.3 % (0.0-4.0); HEMOGLOBIN 9.8 g/dL (12.0-16.0); LYMPHOCYTES # (AUTO) 1.4 K/uL (1.0-5.5); LYMPHOCYTES % (AUTO) 19.1 % (20.5-51.5); MEAN CORPUSCULAR HEMOGLOBIN 36 pg (27-31); MEAN CORPUSCULAR HGB CONC 35 % (32-36); MEAN CORPUSCULAR VOLUME 102 fL (79.0-98.0); MONOCYTES # (AUTO) 0.6 K/uL (0.0-1.0); MONOCYTES % (AUTO) 8.1 % (1.7-9.3); NEUTROPHILS # (AUTO) 5.3 K/uL (1.8-7.7); NEUTROPHILS % (AUTO) 71.2 % (40.0-70.0); PLATELET COUNT (AUTO) 217 K/uL (130-430); RED BLOOD CELL COUNT(AUTO) 2.74 MIL/uL (4.2-6.2); RED CELL DISTRIBUTION WIDTH 15.5 % (9.0-15.0); WHITE BLOOD COUNT (AUTO) 7.4 K/uL (4.8-10.8)
[2021-12-02 07:12] LABS: CALCIUM 9.9 mg/dL (8.4-11.0); CHLORIDE 110 mmol/L (98-107); CREATININE 0.68 mg/dL (0.55-1.30); GLUCOSE 104 mg/dL (70-99); UREA NITROGEN, BLOOD 4 mg/dL (8-21)
[2021-12-02 07:27] LABS: ANION GAP 7 (5-15); SODIUM SERUM 142 mmol/L (136-145)
[2021-12-02 07:59] LABS: POTASSIUM 2.7 mmol/L (3.5-5.1)
[2021-12-02 08:00] VITALS: BP_SYST 123
[2021-12-02] MEDS ORDERED: *TPN PER PHARMACY XX PRN (08:15)
[2021-12-02] MEDS: ATORVASTATIN 20 MG TABLET PO SCH (09:00)
[2021-12-02] MEDS: ASPIRIN 81 MG TABLET(ECOTRIN) PO SCH (09:00)
[2021-12-02 11:55] VITALS: BP_SYST 128
[2021-12-02] MEDS: D5NS 1,000 ML IV SCH ×2 (12:14→22:29)
[2021-12-02] MEDS: POTASSIUM CHLORIDE 40 MEQ, LIDOCAINE JECT 2% PF 100 MG 50 MG in NS 250 ML IV PRN (14:44)
[2021-12-02 15:55] VITALS: BP_SYST 135
[2021-12-02 21:00] VITALS: BP_SYST 139
[2021-12-02] MEDS ORDERED: TPN CENTRAL IV SCH ×9 (21:00)
[2021-12-02] MEDS ORDERED: K PHOS IV SCH ×9 (21:00)
[2021-12-02] MEDS ORDERED: SODIUM ACETATE IV SCH ×9 (21:00)
[2021-12-02] MEDS ORDERED: POTASSIUM ACETATE IV SCH ×9 (21:00)
[2021-12-02] MEDS ORDERED: [UNRECOGNIZED DRUG - OTHER] IV SCH ×9 (21:00)
[2021-12-02] MEDS: FAT EMULSIONS 250 ML IV SCH (22:30)
[2021-12-03 01:19] VITALS: BP_SYST 123
--- NOTE | 2021-12-03 07:30 | NUR ---
PATIENT IN BED, NO S/S OF DISTRESS, APHASIC, ON ROOM AIR, NATALI PICC LINE, INCONTINENT BOWEL AND BLADDER, WOUND CARE DONE DURING HOOP ROLLS OPERATOR, AWAITING HOSPICE PLACEMENT, SAFETY MEASURES IN PLACE, TPN/LIPIDS RUNNING, BED IN LOWEST LOCKED POSITION, CALL LIGHT WITHIN REACH, WILL CONTINUE TO MONITOR.
[2021-12-03 08:00] VITALS: BP_SYST 120
[2021-12-03 08:58] LABS: ALANINE AMINOTRANSFERASE 29 U/L (12-78); ALBUMIN 1.9 g/dL (3.4-4.8); ANION GAP 4 (5-15); ASPARTATE AMINOTRANSFERASE 36 U/L (10-37); CALCIUM 10.1 mg/dL (8.4-11.0); CHLORIDE 110 mmol/L (98-107); CREATININE 0.68 mg/dL (0.55-1.30); GLUCOSE 133 mg/dL (70-99); PHOSPHORUS 1.8 mg/dL (2.7-4.5); POTASSIUM 3.2 mmol/L (3.5-5.1); SODIUM SERUM 137 mmol/L (136-145); TOTAL BILIRUBIN 1.1 mg/dL (0.0-1.0); UREA NITROGEN, BLOOD 4 mg/dL (8-21)
[2021-12-03] MEDS: ATORVASTATIN 20 MG TABLET PO SCH (09:00)
[2021-12-03] MEDS: ASPIRIN 81 MG TABLET(ECOTRIN) PO SCH (09:00)
[2021-12-03] MEDS: D5NS 1,000 ML IV SCH ×2 (11:01→22:16)
[2021-12-03 12:49] VITALS: BP_SYST 130
--- NOTE | 2021-12-03 14:51 | NUR ---
Discharge Planning: DCP faxed pt referral to [facility]#[phone].
--- NOTE | 2021-12-03 15:40 | NUR ---
CENTRAL OFFICE MECHANIC ANA guzmánxed packet for review for inpatient hospice services to [facility] fax: direct: Addendum: 12/03/21 at 1556 by Priscilla Gorman MSW LAUNDRY AIDE received a call back from September at [facility] stating they have received packet and it is under review Addendum: 12/04/21 at 1155 by Priscilla Gorman MSW LAUNDRY AIDE returned a call to Demetrice from [facility] . Message left requesting update on packet review.
[2021-12-03 16:26] VITALS: BP_SYST 125
[2021-12-03] MEDS: POTASSIUM CHLORIDE 40 MEQ, LIDOCAINE JECT 2% PF 100 MG 50 MG in NS 250 ML IV PRN (17:41)
--- NOTE | 2021-12-03 19:20 | NUR ---
OPENING NOTES: Patient received from AM shift nurse. No s/s of distress is noted at this time. Chest rise is even and unlabored on 2L NC. Patient is on TPN and D5NS fluids running via PICC line on NATALI. Safety protocols are in place, will resume care and continue to monitor patient throughout the shift.
[2021-12-03 20:00] VITALS: BP_SYST 133
[2021-12-03] MEDS ORDERED: SODIUM ACETATE IV SCH ×9 (21:00)
[2021-12-03] MEDS ORDERED: POTASSIUM ACETATE IV SCH ×9 (21:00)
[2021-12-03] MEDS ORDERED: K PHOS IV SCH ×9 (21:00)
[2021-12-03] MEDS ORDERED: [UNRECOGNIZED DRUG - OTHER] IV SCH ×9 (21:00)
[2021-12-03] MEDS ORDERED: TPN CENTRAL IV SCH ×9 (21:00)
[2021-12-03] MEDS: FAT EMULSIONS 250 ML IV SCH (22:15)
[2021-12-04 00:24] VITALS: BP_SYST 130
--- NOTE | 2021-12-04 06:59 | NUR ---
CLOSING NOTES; Patient is in bed resting no s/s of distress at this time. Chest rise is even and unlabored on 2L NC. All current shift needs have been met at this time. Safety measures are in place at this time, will differ further care to AM shift for continuity of care.
[2021-12-04 08:00] VITALS: BP_SYST 136
[2021-12-04] MEDS: ASPIRIN 81 MG TABLET(ECOTRIN) PO SCH (08:04)
[2021-12-04] MEDS: ATORVASTATIN 20 MG TABLET PO SCH (08:04)
[2021-12-04 08:05] LABS: ALANINE AMINOTRANSFERASE 26 U/L (12-78); ALBUMIN 1.7 g/dL (3.4-4.8); ANION GAP 8 (5-15); ASPARTATE AMINOTRANSFERASE 28 U/L (10-37); CALCIUM 9.6 mg/dL (8.4-11.0); CHLORIDE 109 mmol/L (98-107); GLUCOSE 127 mg/dL (70-99); PHOSPHORUS 1.6 mg/dL (2.7-4.5); POTASSIUM 3.1 mmol/L (3.5-5.1); SODIUM SERUM 144 mmol/L (136-145); TOTAL BILIRUBIN 0.9 mg/dL (0.0-1.0); UREA NITROGEN, BLOOD 4 mg/dL (8-21)
[2021-12-04 11:54] VITALS: BP_SYST 146
[2021-12-04] MEDS: D5NS 1,000 ML IV SCH (13:20)
[2021-12-04] MEDS: POTASSIUM CHLORIDE 40 MEQ, LIDOCAINE JECT 2% PF 100 MG 50 MG in NS 250 ML IV PRN (15:13)
--- NOTE | 2021-12-04 15:58 | NUR ---
CM: RECEIVED FREDDY FROM INGRID LUND FROM [place] [phone], REGARDING PLACEMENT FOR PT OUTSIDE THE HOME WITH HOSPICE, WAS TOLD TO CALL GHAZAL LUND , WITH [facility] TO FIND OUT WHETHER OR NOT SHE MAY QUALIFY FOR ASSISTANCE, GHAZAL LUND STATES THAT SHE HAS BEEN TRYING TO REACH THE FAMILY TO DISCUSS BUT HAS NOT GOTTEN A RESPONSE BACK, SHARED INFO TO PHONE CONTACT NUMBERS, WILL CALL AGAIN TOMORROW
[2021-12-04 16:55] VITALS: BP_SYST 143
--- NOTE | 2021-12-04 18:30 | NUR ---
Miss Moreno has been assessed as indicated. She has had no s/s of distress or discomfort. she has been repositioned frequently. she has been visted by her of 49years today. low potasium has been replaced TPN.lipids and IVF have all been well tolerated. upper extremities remain edematous PICC line functions well. blood sugars have been within normal limits. she is restig quietly at this time
--- NOTE | 2021-12-04 19:35 | NUR ---
handoff has been given to ALEXX
[2021-12-04 20:00] VITALS: BP_SYST 123
--- NOTE | 2021-12-04 20:41 | NUR ---
OPENING NOTES: Patient received from AM shift. Patient is non verbal no s/s of distress is noted. Chest rise is even and unlabored on 2L NC. Tachy cardia noted on heart auscultation. Active BS present x4, no tenderness noted with palpation. Patient is incontinent of B&B and must be turned Q2Hrs. TPN is infusing via PICC with lipids running simultaneously. D5NS is also running at 80ml/hr. Patient is tolerating infusions well. Patient has a wound on sacrum with dressing C/D/I. Safety protocols are in place. Will resume care and continue to monitor throughout the shift.
[2021-12-04] MEDS ORDERED: TPN CENTRAL IV SCH ×9 (21:00)
[2021-12-04] MEDS ORDERED: K PHOS IV SCH ×9 (21:00)
[2021-12-04] MEDS ORDERED: POTASSIUM ACETATE IV SCH ×9 (21:00)
[2021-12-04] MEDS ORDERED: [UNRECOGNIZED DRUG - OTHER] IV SCH ×9 (21:00)
[2021-12-04] MEDS ORDERED: SODIUM ACETATE IV SCH ×9 (21:00)
[2021-12-04] MEDS: FAT EMULSIONS 250 ML IV SCH (22:04)
[2021-12-04] MEDS: METOPROLOL TARTRATE 5 MG/5 ML AMPUL IVP PRN (22:34)
[2021-12-05] MEDS: D5NS 1,000 ML IV SCH ×2 (00:42→14:09)
[2021-12-05 00:45] VITALS: BP_SYST 120
--- NOTE | 2021-12-05 06:52 | NUR ---
CLOSING NOTES: Patient is in bed resting no s/s of distress is noted at this time. Chest rise is even and unlabored on 2L NC. TPN and lipids are infusing and patient is tolerating it well. D5NS is also running at as ordered. All current shift needs have been met at this time and safety protocols are in place. Will differ further care to AM shift for continuity of care.
[2021-12-05 08:00] VITALS: BP_SYST 158
--- NOTE | 2021-12-05 08:00 | NUR ---
OPENING NOTE Patient in bed resting, eyes spontaneously opening but patient is nonverbal. No sign of distress or pain at this time. IV access is clean, dry, intact and patent. Prescribed fluids and TPN are running as prescribed, patient tolerating well. Nasal cannula in place on 1L, oxygen saturation 100%. Patient supported with pillows and turned q2h. All needs met at this time and safety checks made.
[2021-12-05] MEDS: ASPIRIN 81 MG TABLET(ECOTRIN) PO SCH (08:38)
[2021-12-05] MEDS: ATORVASTATIN 20 MG TABLET PO SCH (08:38)
[2021-12-05 11:41] VITALS: BP_SYST 139
[2021-12-05 11:41] LABS: ANION GAP 5 (5-15); CALCIUM 8.9 mg/dL (8.4-11.0); CHLORIDE 105 mmol/L (98-107); GLUCOSE 124 mg/dL (70-99); POTASSIUM 3.4 mmol/L (3.5-5.1); SODIUM SERUM 137 mmol/L (136-145); UREA NITROGEN, BLOOD 8 mg/dL (8-21)
[2021-12-05 11:46] LABS: ALANINE AMINOTRANSFERASE 29 U/L (12-78); ALBUMIN 1.8 g/dL (3.4-4.8); ASPARTATE AMINOTRANSFERASE 63 U/L (10-37); TOTAL BILIRUBIN 0.9 mg/dL (0.0-1.0)
--- NOTE | 2021-12-05 14:34 | NUR ---
ROUNDS Patient in bed resting with eyes closed. No sign of distress or pain. IV site is clean, dry, intact and running prescribed fluids. Patient has been turned q2h and supported with pillows. All needs met at this time and safety checks made.
[2021-12-05 15:36] VITALS: BP_SYST 132
[2021-12-05] MEDS: POTASSIUM CHLORIDE 40 MEQ, LIDOCAINE JECT 2% PF 100 MG 50 MG in NS 250 ML IV PRN (15:39)
--- NOTE | 2021-12-05 19:13 | NUR ---
CLOSING NOTE Patient resting in bed with eyes closed, no sign of distress or pain. IV site is clean, dry, intact, and running prescribed fluids. Nasal cannula in place on 1L, oxygenation 100%. Pillow support in place; patient turned q2h throughout shift. Boots on feet for heel protection. All needs met at this time and safety checks made. Will endorse to rn shift mgr nurse. .
[2021-12-05 19:50] VITALS: BP_SYST 139
--- NOTE | 2021-12-05 19:50 | NUR ---
PM ASSESSMENT; -Pt is obtunded, laying in bed comfortably. NO s/s any pain,sob,or any acute distress noted. Picc line NATALI both ports patent, drsg cdi, no s/s any infiltration noted. TPN @ 60ml/hr, Lipid 20% @ 5ml/hr, and D5NS @80ml/hr. Guero heel boot protectors applied. Pt has thick yellow secretion, suctioning pt, pt attempting to bite on the Yanker but able to suction pt fine. No family is at bedside. Bed alarmed, HOB > 30 degree entire time. Pt is on 2 L n/c oxy, y5uzo=30%. Pt is medsurg but placed on a monitor with A-fib 126-128 bpm. Turned & repositioned & q 2hrs prn. Cont to monitor pt.
[2021-12-05] MEDS: FAT EMULSIONS 250 ML IV SCH (20:40)
[2021-12-05] MEDS ORDERED: POTASSIUM ACETATE IV SCH ×9 (21:00)
[2021-12-05] MEDS ORDERED: SODIUM ACETATE IV SCH ×9 (21:00)
[2021-12-05] MEDS ORDERED: K PHOS IV SCH ×9 (21:00)
[2021-12-05] MEDS ORDERED: TPN CENTRAL IV SCH ×9 (21:00)
[2021-12-05] MEDS ORDERED: [UNRECOGNIZED DRUG - OTHER] IV SCH ×9 (21:00)
--- NOTE | 2021-12-05 22:20 | NUR ---
ROUNDS; Pt has thick yellow secretion, suctioning pt, pt attempting to bite on the Yanker but able to suction pt fine. Bed alarmed, HOB > 30 degree entire time. Pt is on 2 L n/c oxy, d6jao=59%. Turned & repositioned & q 2hrs prn. Cont to monitor pt.
--- NOTE | 2021-12-06 00:09 | NUR ---
ROUNDS; -Pt is laying in bed. No s/s any pain,sob,or any acute distress noted. Suctioning pt, thick yellow secretion noted, pt tolerated well. Bed alarmed, HOB > 30 degree entire time. Pt is on 2 L n/c oxy, e2xql=09%. Turned & repositioned & q 2hrs prn. Side rails x3. Cont to monitor pt.
[2021-12-06 01:16] VITALS: BP_SYST 122
--- NOTE | 2021-12-06 02:21 | NUR ---
ROUNDS; -Pt is laying in bed. A monitor shows a-fib HR btw 126-133 bpm. No s/s any pain,sob,or any acute distress noted. Suctioning pt, thick yellow secretion noted, pt tolerated well. Bed alarmed, HOB > 30 degree entire time. Pt is on 2 L n/c oxy, h5kjj=50%. Turned & repositioned & q 2hrs prn. Side rails x3. Cont to monitor pt.
--- NOTE | 2021-12-06 02:47 | NUR ---
NOTES; HR= 116-138 BPM A-FIB
[2021-12-06] MEDS: dilTIAZem HCL IVP 5 MG/ML VIAL IVP PRN (03:40)
[2021-12-06] MEDS: D5NS 1,000 ML IV SCH (03:40)
--- NOTE | 2021-12-06 03:40 | NUR ---
NOTES; -gave Cardizem 10mg IVP for JA=241 bpm (per md ordered if HR above 130 bpm); qt=481/97,l7wpu=66% oxy continously. Pt is asleep. NO s/s any acute distress noted. All safety measures in place. Call light w/in reach. Side rails x3. Cont to monitor pt.
--- NOTE | 2021-12-06 03:56 | NUR ---
NOTES; US=460-710 BPM ON A MONITOR AFTER CARDIZEM 10MG IVP GIVEN -CONT TO MONITOR PT.
[2021-12-06] MEDS: INSULIN REGULAR, HUMAN 100 UNITS/ML, 10 ML VIAL (humuLIN R) SUBCUT PRN ×2 (06:04→21:36)
--- NOTE | 2021-12-06 06:22 | NUR ---
CLOSING NOTES; Pt is obtunded, laying in bed comfortably. NO s/s any pain,sob,or any acute distress noted. Guero UE edema noted, left upper extrem more edematous than right upper extrem. Picc line NATALI both ports patent, flushed w/ NS, but not blood returns noted, warm to touch around PICC line site-keeps guero UE elevates with pillows. TPN @ 60ml/hr, Lipid 20% @ 5ml/hr, and D5NS @80ml/hr. Guero heel boot protectors applied. Suctioning pt with thick yellow secretion noted. Bed alarmed, HOB > 30 degree entire time. Pt is on 2 L n/c oxy, n9lzk=96%. A monitor shows 122-130 bpm. Will endorse to next nurse to ask PICC line RN to assess the PICC line.
[2021-12-06 06:57] LABS: ALANINE AMINOTRANSFERASE 40 U/L (12-78); ALBUMIN 1.7 g/dL (3.4-4.8); ANION GAP 4 (5-15); ASPARTATE AMINOTRANSFERASE 74 U/L (10-37); CALCIUM 8.7 mg/dL (8.4-11.0); CHLORIDE 106 mmol/L (98-107); CREATININE 0.64 mg/dL (0.55-1.30); GLUCOSE 137 mg/dL (70-99); PHOSPHORUS 2.5 mg/dL (2.7-4.5); POTASSIUM 3.7 mmol/L (3.5-5.1); SODIUM SERUM 137 mmol/L (136-145); TOTAL BILIRUBIN 0.8 mg/dL (0.0-1.0); UREA NITROGEN, BLOOD 10 mg/dL (8-21)
[2021-12-06] MEDS: ATORVASTATIN 20 MG TABLET PO SCH (09:00)
[2021-12-06] MEDS: ASPIRIN 81 MG TABLET(ECOTRIN) PO SCH (09:00)
--- NOTE | 2021-12-06 11:45 | NUR ---
CM: PLACED CALL TO INGRID LUND ([facility]) CONCERNING LETTER OF DENIAL FOR REQUEST TO TRANSFER TO CONTRACTED FACILITY, INGRID'S RESPONSE WAS TO CONTACT [facility] [phone] KARLI Hightower
[2021-12-06] MEDS: METOPROLOL TARTRATE 5 MG/5 ML AMPUL IVP PRN (12:01)
[2021-12-06 12:28] VITALS: BP_SYST 142
--- NOTE | 2021-12-06 15:47 | NUR ---
Spoke with Aminata, music supervisor at [facility]. I clarified only the patient or family can appeal to [facility]. Aminata is going to review the patient's case and see if she is eligible for SNF placement with TPN. I called [facility] and had them cancel case # [id number].
[2021-12-06] MEDS ORDERED: EMOLLIENT COMBINATION NO.73 78 GM CREAM..G. TP SCH (17:30)
[2021-12-06 20:04] VITALS: BP_SYST 113
[2021-12-06] MEDS ORDERED: SODIUM ACETATE IV SCH ×9 (21:00)
[2021-12-06] MEDS ORDERED: POTASSIUM ACETATE IV SCH ×9 (21:00)
[2021-12-06] MEDS ORDERED: TPN CENTRAL IV SCH ×9 (21:00)
[2021-12-06] MEDS ORDERED: [UNRECOGNIZED DRUG - OTHER] IV SCH ×9 (21:00)
[2021-12-06] MEDS ORDERED: K PHOS IV SCH ×9 (21:00)
[2021-12-06] MEDS: FAT EMULSIONS 250 ML IV SCH (21:32)
[2021-12-07] VITALS (7 sets, daily range): BP systolic 107–158
[2021-12-07] MEDS: dilTIAZem HCL IVP 5 MG/ML VIAL IVP PRN (00:11)
--- NOTE | 2021-12-07 01:45 | NUR ---
1930 Pt. in bed, eyes open, non verbal. HOB at 30 degrees, picc to john with tpn and lipids infusing at rx'd rates 2200 Pt. cleaned, vss, willl monitor. 0030 Pt. sleeping, no distress 0200 Pt. turned, cleaned, vss
[2021-12-07] MEDS: INSULIN REGULAR, HUMAN 100 UNITS/ML, 10 ML VIAL (humuLIN R) SUBCUT PRN ×4 (06:04→22:36)
--- NOTE | 2021-12-07 06:22 | NUR ---
0600 Pt. needs met this shift, vss, turned and javier care done prn. No acute distress, hob at 30 degrees, oral care and suctioned prn.
[2021-12-07 08:36] LABS: ALBUMIN 1.8 g/dL (3.4-4.8); ANION GAP 4 (5-15); CALCIUM 9.1 mg/dL (8.4-11.0); CHLORIDE 104 mmol/L (98-107); CREATININE 0.75 mg/dL (0.55-1.30); GLUCOSE 140 mg/dL (70-99); PHOSPHORUS 3.5 mg/dL (2.7-4.5); POTASSIUM 3.9 mmol/L (3.5-5.1); SODIUM SERUM 137 mmol/L (136-145); UREA NITROGEN, BLOOD 10 mg/dL (8-21)
[2021-12-07] MEDS: ATORVASTATIN 20 MG TABLET PO SCH (09:00)
[2021-12-07] MEDS: ASPIRIN 81 MG TABLET(ECOTRIN) PO SCH (09:00)
[2021-12-07] MEDS: D5NS 1,000 ML IV SCH ×2 (15:01→18:37)
--- NOTE | 2021-12-07 19:14 | NUR ---
END SHIFT REPORT GIVEN TO KAY CONNELLY. THANK YOU
[2021-12-07] MEDS ORDERED: K PHOS IV SCH ×9 (21:00)
[2021-12-07] MEDS ORDERED: POTASSIUM ACETATE IV SCH ×9 (21:00)
[2021-12-07] MEDS ORDERED: [UNRECOGNIZED DRUG - OTHER] IV SCH ×9 (21:00)
[2021-12-07] MEDS ORDERED: TPN CENTRAL IV SCH ×9 (21:00)
[2021-12-07] MEDS ORDERED: SODIUM ACETATE IV SCH ×9 (21:00)
[2021-12-07] MEDS: FAT EMULSIONS 250 ML IV SCH (22:34)
[2021-12-08] VITALS (7 sets, daily range): BP systolic 100–148
--- NOTE | 2021-12-08 02:07 | NUR ---
1930 pt,. in bed, no distress noted, hob at 30 degrees, [address], will monitor. 2200 Pt. turned and javier care given, picc line to left upper arm patent, with TPN and lipids infusing at rx'd rates 0030 Pt. turned, no distress noted, oral care given 0200 Pt. resting quietly, no distress, vss.
--- NOTE | 2021-12-08 06:32 | NUR ---
0600 Pt. needs met this shift, vss, turned q2, kept dry and clean. Oral care given prn, hob at 30 degrees, no acute distress
[2021-12-08] MEDS: ASPIRIN 81 MG TABLET(ECOTRIN) PO SCH (07:29)
[2021-12-08] MEDS: ATORVASTATIN 20 MG TABLET PO SCH (07:29)
[2021-12-08 08:12] LABS: ALANINE AMINOTRANSFERASE 41 U/L (12-78); ALBUMIN 1.6 g/dL (3.4-4.8); ANION GAP 5 (5-15); ASPARTATE AMINOTRANSFERASE 54 U/L (10-37); CALCIUM 8.7 mg/dL (8.4-11.0); CHLORIDE 104 mmol/L (98-107); CREATININE 0.72 mg/dL (0.55-1.30); GLUCOSE 114 mg/dL (70-99); SODIUM SERUM 135 mmol/L (136-145); TOTAL BILIRUBIN 0.7 mg/dL (0.0-1.0); UREA NITROGEN, BLOOD 12 mg/dL (8-21)
[2021-12-08] MEDS: INSULIN REGULAR, HUMAN 100 UNITS/ML, 10 ML VIAL (humuLIN R) SUBCUT PRN ×2 (11:38→17:01)
--- NOTE | 2021-12-08 19:27 | NUR ---
END SHIFT REPORT GIVEN TO NURSE GENA REYES. FAMILY HAS QUESTIONS ABOUT TPN FEEDING, THEY DO NOT WANT THE TPN FEEDING FOR THE PATIENT. THANK YOU
[2021-12-08] MEDS ORDERED: [UNRECOGNIZED DRUG - OTHER] IV SCH ×9 (21:00)
[2021-12-08] MEDS ORDERED: TPN CENTRAL IV SCH ×9 (21:00)
[2021-12-08] MEDS ORDERED: POTASSIUM ACETATE IV SCH ×9 (21:00)
[2021-12-08] MEDS ORDERED: K PHOS IV SCH ×9 (21:00)
[2021-12-08] MEDS ORDERED: SODIUM ACETATE IV SCH ×9 (21:00)
[2021-12-08] MEDS: D5NS 1,000 ML IV SCH (22:06)
[2021-12-08] MEDS: FAT EMULSIONS 250 ML IV SCH (22:10)
[2021-12-09 00:23] VITALS: BP_SYST 140
--- NOTE | 2021-12-09 01:00 | NUR ---
Patient in bed, non labored breathing. on O2 at 1L per minute. still afib at 118 bpm. Family is concern about the TPN will be discussed by the MD. Pending for hospice care transfer waiting for placement.
[2021-12-09 08:00] VITALS: BP_SYST 147
[2021-12-09 08:27] LABS: ALANINE AMINOTRANSFERASE 34 U/L (12-78); ALBUMIN 1.6 g/dL (3.4-4.8); ANION GAP 3 (5-15); ASPARTATE AMINOTRANSFERASE 50 U/L (10-37); CALCIUM 8.5 mg/dL (8.4-11.0); CHLORIDE 103 mmol/L (98-107); CREATININE 0.76 mg/dL (0.55-1.30); GLUCOSE 150 mg/dL (70-99); SODIUM SERUM 135 mmol/L (136-145); TOTAL BILIRUBIN 0.9 mg/dL (0.0-1.0); UREA NITROGEN, BLOOD 13 mg/dL (8-21)
[2021-12-09] MEDS ORDERED: FUROSEMIDE 20 MG/2 ML VIAL IVP ONE (10:15)
[2021-12-09] MEDS: ASPIRIN 81 MG TABLET(ECOTRIN) PO SCH (10:35)
[2021-12-09] MEDS: ATORVASTATIN 20 MG TABLET PO SCH (10:36)
[2021-12-09 11:27] VITALS: BP_SYST 148
[2021-12-09] MEDS: dilTIAZem HCL IVP 5 MG/ML VIAL IVP PRN (14:06)
[2021-12-09 15:51] VITALS: BP_SYST 141
[2021-12-09 19:00] VITALS: BP_SYST 141
[2021-12-09] MEDS ORDERED: TPN CENTRAL IV SCH ×9 (21:00)
[2021-12-09] MEDS ORDERED: K PHOS IV SCH ×9 (21:00)
[2021-12-09] MEDS ORDERED: POTASSIUM CHLORIDE IV SCH ×9 (21:00)
[2021-12-09] MEDS ORDERED: [UNRECOGNIZED DRUG - OTHER] IV SCH ×9 (21:00)
[2021-12-09] MEDS ORDERED: SODIUM ACETATE IV SCH ×9 (21:00)
[2021-12-09] MEDS: FAT EMULSIONS 250 ML IV SCH (23:01)
[2021-12-10 00:35] VITALS: BP_SYST 155
[2021-12-10] MEDS: ASPIRIN 81 MG TABLET(ECOTRIN) PO SCH (09:00)
[2021-12-10] MEDS: ATORVASTATIN 20 MG TABLET PO SCH (09:00)
[2021-12-10 11:11] LABS: ALANINE AMINOTRANSFERASE 26 U/L (12-78); ALBUMIN 1.4 g/dL (3.4-4.8); ASPARTATE AMINOTRANSFERASE 42 U/L (10-37); CALCIUM 8.2 mg/dL (8.4-11.0); CREATININE 0.85 mg/dL (0.55-1.30); GLUCOSE 184 mg/dL (70-99); PHOSPHORUS 2.9 mg/dL (2.7-4.5); SODIUM SERUM 134 mmol/L (136-145); TOTAL BILIRUBIN 0.9 mg/dL (0.0-1.0); UREA NITROGEN, BLOOD 15 mg/dL (8-21)
[2021-12-10 11:37] VITALS: BP_SYST 142
[2021-12-10 11:39] LABS: ANION GAP 3 (5-15); CHLORIDE 102 mmol/L (98-107); POTASSIUM 3.4 mmol/L (3.5-5.1)
[2021-12-10 15:44] VITALS: BP_SYST 146
[2021-12-10] MEDS: D5NS 1,000 ML IV SCH (18:41)
--- NOTE | 2021-12-10 19:10 | NUR ---
RECEIVED REPORT FROM OUTGOING NURSE ALEK. PT ASLEEP IN BED, NOTED 2 LUMEN PICC LINE @[facility] RUNNING WITH IV FLUIDS AND TPN/LIPIDS. PT ON O2 1L WITH NC SATING 100% ON ASSESSMENT. BED IN LOW POSITION, CALL LIGHT WITHIN PT REACH.
[2021-12-10] MEDS ORDERED: K PHOS IV SCH ×9 (21:00)
[2021-12-10] MEDS ORDERED: POTASSIUM ACETATE IV SCH ×9 (21:00)
[2021-12-10] MEDS ORDERED: SODIUM CHLORIDE IV SCH ×9 (21:00)
[2021-12-10] MEDS ORDERED: [UNRECOGNIZED DRUG - OTHER] IV SCH ×9 (21:00)
[2021-12-10] MEDS ORDERED: TPN CENTRAL IV SCH ×9 (21:00)
[2021-12-10] MEDS: FAT EMULSIONS 250 ML IV SCH (22:27)
--- NOTE | 2021-12-10 23:30 | NUR ---
PT GIVEN ARNOL CARE, CHANGED AND REPOSITIONED. PT SUCTIONED ORALLY, NOTED MODERATE CREAMY SPUTUM . MADE COMFORTABLE, ALL DUE MEDS GIVEN, BS @HS WAS 12I, NO COVERAGE NEEDED. WILL CONT. TO MONITOR.
[2021-12-11 00:44] VITALS: BP_SYST 136
[2021-12-11] MEDS: D5NS 1,000 ML IV SCH (05:55)
[2021-12-11 07:23] VITALS: BP_SYST 133
[2021-12-11 08:00] VITALS: BP_SYST 130
[2021-12-11 08:31] LABS: ALANINE AMINOTRANSFERASE 28 U/L (12-78); ALBUMIN 1.4 g/dL (3.4-4.8); ANION GAP 4 (5-15); ASPARTATE AMINOTRANSFERASE 45 U/L (10-37); CALCIUM 9.1 mg/dL (8.4-11.0); CHLORIDE 104 mmol/L (98-107); GLUCOSE 143 mg/dL (70-99); PHOSPHORUS 2.8 mg/dL (2.7-4.5); POTASSIUM 3.5 mmol/L (3.5-5.1); SODIUM SERUM 137 mmol/L (136-145); TOTAL BILIRUBIN 0.8 mg/dL (0.0-1.0); UREA NITROGEN, BLOOD 16 mg/dL (8-21)
[2021-12-11] MEDS: ATORVASTATIN 20 MG TABLET PO SCH (09:00)
[2021-12-11] MEDS: ASPIRIN 81 MG TABLET(ECOTRIN) PO SCH (09:00)
[2021-12-11] MEDS ORDERED: FUROSEMIDE 40 MG/4 ML VIAL IVP ONE (10:15)
[2021-12-11 12:00] VITALS: BP_SYST 126
[2021-12-11] MEDS: dilTIAZem HCL IVP 5 MG/ML VIAL IVP PRN (13:42)
--- NOTE | 2021-12-11 16:17 | NUR ---
Format Proofreader MIRROR SPECIALIST called pts. daughter, Sona (Emma) [phone] and introduced self to her . MIRROR SPECIALIST asked Sona what the plan was for her mom. Sona said "What do you mean". MIRROR SPECIALIST asked Sona how she felt if her mom was taken off the TPN and provided with comfort measures only. Sona stated she thought her mom was taken off TPN. MIRROR SPECIALIST asked to speak to pts. , Mr. Moreno. MIRROR SPECIALIST introduced self to Mr. Moreno and asked about providing comfort measuring only and discontinued use of TPN. Mr. Moreno was in agreement and said "Yes" when asked. MIRROR SPECIALIST asked to speak to Pts daugther Sona once again. MIRROR SPECIALIST asked if they wanted to come to see pt. Sona stated she vaccinated and would take her father to get another test so she can bring him by. MIRROR SPECIALIST asked if they wanted MIRROR SPECIALIST to call a team psychologist. Family declined. MIRROR SPECIALIST gave them her phone number and let them know they could call her if they had any questions. MIRROR SPECIALIST added that they could call and speak to the RnRubio to get a status of pt. MIRROR SPECIALIST gave family Rns's extension. MIRROR SPECIALIST shared info with KEVON Mancilla who messaged Dr. Lewis re. request to discontinue TPN. MIRROR SPECIALIST will remain available as needed.
[2021-12-11] MEDS ORDERED: LORazepam 2 MG/ML VIAL IVP PRN (16:30)
[2021-12-11 16:45] VITALS: BP_SYST 133
[2021-12-11 20:00] VITALS: BP_SYST 138; BP_SYST 147
--- NOTE | 2021-12-11 20:00 | NUR ---
RECEIVED REPORT FROM OUTGOING NURSE . PT AWAKE IN BED, NOTED 2 LUMEN PICC LINE AT [facility], PT ON O2 4L VIA NC SATING 100% ON ASSESSMENT,BED IN LOW POSITION, CALL LIGHT WITHIN PT REACH, SIDE RAILS UP X4, PT ON DNR/DNI COMFORT MEASURES ONLY, REPOSITIONED PER COMFORT, WILL CONTINUE TO MONITOR AND PROVIDE COMFORT MEASURES.
[2021-12-11] MEDS ORDERED: SODIUM CHLORIDE IV SCH ×9 (21:00)
[2021-12-11] MEDS ORDERED: K PHOS IV SCH ×9 (21:00)
[2021-12-11] MEDS ORDERED: POTASSIUM ACETATE IV SCH ×9 (21:00)
[2021-12-11] MEDS ORDERED: TPN CENTRAL IV SCH ×9 (21:00)
[2021-12-11] MEDS ORDERED: [UNRECOGNIZED DRUG - OTHER] IV SCH ×9 (21:00)
--- NOTE | 2021-12-12 | NUR ---
NO CHANGES NOTED FROM PREVIOUS ASSESSMENT,REPOSITION PER COMFORT, WILL CONTINUE TO PROVIDE COMFORT MEASURES NEEDED.
[2021-12-12 00:15] VITALS: BP_SYST 136
--- NOTE | 2021-12-12 04:00 | NUR ---
PT RESTING COMFORTABLY IN BED, AWAKE, STILL ON 4L VIA NC, AM CARE RENDERED TO PATIENT, REPOSITIONED PER COMFORT, WILL CONTINUE TO MONITOR AND PROVIDE COMFORT MEASURES PER ORDERED.
--- NOTE | 2021-12-12 07:13 | NUR ---
SHIFT CHANGE REPORT GIVEN TO MERISSA VILLANUEVA FOR CONTINUITY OF CARE, ALL QUESTIONS WERE ANSWERED AND RN VERBALIZED UNDERSTANDING.
[2021-12-12 08:00] VITALS: BP_SYST 141
[2021-12-12] MEDS ORDERED: FUROSEMIDE 40 MG/4 ML VIAL IVP SCH (09:00)
[2021-12-12 12:53] VITALS: BP_SYST 128
[2021-12-12] MEDS: MORPHINE 2 MG/ML INJ. SYRINGE IVP PRN ×2 (13:36→21:10)
--- NOTE | 2021-12-12 14:43 | NUR ---
Spoke w/ Loreta at [facility]. She stated [facility] will deny patient's stay from 12/07/21. I asked her to notify the family of this denial. She was given the daughter's phone #. She was notified the patient is currently on comfort care at [facility]. Daughter has refused Hospice Care for the patient.
[2021-12-12 16:17] VITALS: BP_SYST 140
[2021-12-12 20:16] VITALS: BP_SYST 156
--- NOTE | 2021-12-13 | NUR ---
NO CHANGES NOTED FROM PREVIOUS ASSESSMENT,REPOSITION PER COMFORT, WILL CONTINUE TO PROVIDE COMFORT MEASURES NEEDED.
[2021-12-13 02:26] VITALS: BP_SYST 127
--- NOTE | 2021-12-13 07:23 | NUR ---
SHIFT CHANGE REPORT GIVEN TO JUANITA VILLANUEVA FOR CONTINUITY OF CARE, ALL QUESTIONS WERE ANSWERED AND RN VERBALIZED UNDERSTANDING.
[2021-12-13 10:29] VITALS: BP_SYST 134
[2021-12-13] MEDS: MORPHINE 2 MG/ML INJ. SYRINGE IVP PRN ×2 (12:46→14:41)
[2021-12-13 12:51] VITALS: BP_SYST 130
--- NOTE | 2021-12-13 14:53 | NUR ---
Spoke w/ patient's in patient's room and her daughter on the telephone. With the financial counselor, Patricia, we explained the patient's stay in the hospital has been denied by [facility] as of 12/07 and the patient has a DC order as of 12/09/21, so the patient is financially responsible for the patient's stay from 12/09/21. The family has not been formally notified of denial by [facility]-they will call [facility] to discuss the denial. The family has a letter from [facility] dated 12/09/21 stating the patient's continued stay is the financial responsibility of [facility]. The was given the IM letter from [employer] and explained his rights to appeal her discharge, from the DC order written 12/09/21. I spoke to the patient's daughter on the telephone, she stated she will appeal the DC with [facility] today.
[2021-12-13 16:15] VITALS: BP_SYST 132
--- NOTE | 2021-12-13 19:15 | NUR ---
OPENING NOTE REPORT RECEIVED FROM DAYSHIFT NURSE. PATIENT RECEIVED LYING IN BED, EYES CLOSED, NO S/S OF ACUTE DISTRESS. BREATHING IS EVEN, LABORED, SIGNS OF ACCESSORY MUSCLES USED. NASAL CANULA ATTACHED, ON 4L, HOB RAISED, SPO2 AT 100. IV SITE IS PATENT, NO SIGNS OF INFILTRATION OR INFECTION NOTED. SKIN WARM AND DRY TO TOUCH. BED ALARM ON. BED IS LOCKED AND AT LOWEST POSITION. WILL CONTINUE TO MONITOR.
[2021-12-13 20:00] VITALS: BP_SYST 126
[2021-12-13] MEDS ORDERED: MORPHINE SULFATE IN 0.9 % NACL 100 ML IV ONE (21:22)
[2021-12-13] MEDS: MORPHINE SULFATE IN 0.9 % NACL 100 ML IV PRN ×3 (21:34→23:14)
--- NOTE | 2021-12-13 21:34 | NUR ---
MORPHINE DRIP DRIP STARTED AT THIS TIME, BP STABLE, HR AT 150. SPO2 100 ON 4L OF OXYGEN. WILL CONTINUE TO MONITOR.
--- NOTE | 2021-12-13 22:08 | NUR ---
TITRATE PER TITRATE ORDER, INCREASED MORPHINE DRIP RATE TO 4. HR STILL > 100. WILL CONTINUE TO MONITOR.
--- NOTE | 2021-12-13 23:14 | NUR ---
TITRATE UP INCREASED RATE OF MORPHINE DRIP TO 6ML/HR AT THIS TIME. HR STILL > 100 AND PATIENT MOANING. WILL CONTINUE TO MONITOR.
--- NOTE | 2021-12-14 | NUR ---
TRANSFER OF CARE REPORT GIVEN TO DELBERT AT THIS TIME. ALL QUESTIONS AND CONCERNS ADDRESSED. PATIENT IN BED, RESTING. NASAL CANULA ATTACHED, ON 4L OF OXYGEN. HOB RAISED. MORPHINE DRIP INFUSING WELL. ALL NEEDS MET.
--- NOTE | 2021-12-14 | NUR ---
pt.re-assessed.i received the pt's report/data per janki.pt.presents ms:drip;rate;5mg/hr.pt.presents picc line; rt.bicept.pt.presents afect;reno. ca;light/tel;ehp w/aiocess of [facility].
[2021-12-14 00:36] VITALS: BP_SYST 122
--- NOTE | 2021-12-14 05:30 | NUR ---
pt.assessed.ms-drip infusing.affect;blunt.per flacc pain mgx pt.absent facial grimaces/body posturing. pt,repositioned.call light/telephone placed w/in access of the pt.
--- NOTE | 2021-12-14 07:50 | NUR ---
OPENING NOTE Patient resting in bed with eyes closed. No sign of distress or pain. Morphine drip infusing. Patient has agonal breathing, heart rate is jumping from the 110's to 150's. Comfort measures provided. All needs met at this time and safety checks made.
[2021-12-14 08:00] VITALS: BP_SYST 111
--- NOTE | 2021-12-14 09:19 | NUR ---
Nutrition F/U RD reviewed pt's current EMR including diet Hx, physician notes, nursing notes, pertinent labs/meds/procedures, care trends, and care activity. Current Diet Order/Nutrition Support: NPO x19 days Per EMR review, comfort measures per family request, morphine drip in progress. RD signed off of case at this time. RD to F/U as needed.
[2021-12-14 12:50] VITALS: BP_SYST 118
[2021-12-14 16:00] VITALS: BP_SYST 115
[2021-12-14 16:51] VITALS: BP_SYST 115
--- NOTE | 2021-12-14 17:15 | NUR ---
RN NOTES: PATIENT STOPPED BREATHING. NO PULSES. NO BLOOD PRESSURE. HR=0. PUPILS DILATED. ASYSTOLE IN THE MONITOR. PRONOUNCED WITH ANOTHER RN Francois AT 1715.
--- NOTE | 2021-12-14 17:21 | NUR ---
FAMILY CALLED Called emergency contact, Mehrdad. did not answer, left voicemail for family to call hospital.
--- NOTE | 2021-12-14 17:30 | NUR ---
[facility] Spoke with Judy Referral # [id number]
--- NOTE | 2021-12-14 17:40 | NUR ---
[facility] Spoke with Brian at the coroners office, coroners is releasing the body.
--- NOTE | 2021-12-14 17:59 | NUR ---
SPOKE TO FAMILY Spoke with daughter Sona, informed her that the patient has passed.
--- NOTE | 2021-12-14 18:16 | NUR ---
[facility] [employer] Spoke with Fernando, , per the request of the family Stated he would call back with a cone picker time.
--- NOTE | 2021-12-14 23:05 | NUR ---
MORTUARY: [email or web address] CAME TO [place] [facility] , ME AND SECURITY WAS PRESENT AT BEDSIDE WHILE RELEASING BODY , ALL PAPER WORKS WERE DONE BY DAY SHIFT ; HOUSE SUP. MADE AWARE .
== END 2021-12-14 17:15 ==
LOC: SED 14:05 → STU 17:30 → SMU 11-16 09:19
PROVIDERS: ADMIT General Practice; ATTEND General Practice
PROC: 02HV33Z Insertion of Infusion Device into Superior Vena Cava, Percutaneous Approach (ICD-10-PCS; principal; 2021-11-15)
PROC: B548ZZA Ultrasonography of Superior Vena Cava, Guidance (ICD-10-PCS; 2021-11-15)
DX: I21.4 Non-ST elevation (NSTEMI) myocardial infarction (principal); G93.41 Metabolic encephalopathy; R40.20 Unspecified coma; I69.351 Hemiplegia and hemiparesis following cerebral infarction affecting right dominant side; R47.01 Aphasia; I48.20 Chronic atrial fibrillation, unspecified; D68.9 Coagulation defect, unspecified; E44.1 Mild protein-calorie malnutrition; I46.9 Cardiac arrest, cause unspecified; E83.52 Hypercalcemia; E87.6 Hypokalemia; G93.89 Other specified disorders of brain; R13.10 Dysphagia, unspecified; I10 Essential (primary) hypertension; Z66 Do not resuscitate; Z20.822 Contact with and (suspected) exposure to COVID-19; E83.39 Other disorders of phosphorus metabolism; R74.01 Elevation of levels of liver transaminase levels; R62.7 Adult failure to thrive; F03.90 Unspecified dementia, unspecified severity, without behavioral disturbance, psychotic disturbance, mood disturbance, and anxiety; I25.2 Old myocardial infarction; Z51.5 Encounter for palliative care; Z79.899 Other long term (current) drug therapy; Z79.82 Long term (current) use of aspirin; Z74.01 Bed confinement status; Z68.23 Body mass index [BMI] 23.0-23.9, adult
CPT/HCPCS: 36415; 70450-TC; 70496; 70498; 71045; 76376; 80048; 80053; 80076; 82040; 82962; 83036; 83605; 83690; 83735; 84100; 84478; 84484; 85025; 85610-TC; 85730-TC; 86886; 86900; 86901; 92610-GN; 93005; 95816; 96365; 96366; 96368; 96375; 97110-GP; 99291; G0378; G0481; G0482; J1815; J1940; J2060; J2270; J2543; J3370; J3475; J3480; J3490; J7030; J7050; J7060; J7131; Q9967